=== PATIENT | female | born 1950 ===

== ENCOUNTER 2017-01-13 05:41 | Inpatient (IN) | payer OTHER ==
[2017-01-13] MEDS ORDERED: LIDOCAINE 1% 2 ML INJ ONE (06:10)
[2017-01-13] MEDS ORDERED: BUPIVACAINE/EPI 0.25% 30 ML SDV ONE (06:46)
[2017-01-13] MEDS ORDERED: SKIN ADHESIVE (DERMABOND) 1 EACH TP ONE (06:46)
[2017-01-13] MEDS ORDERED: THROMBIN (RECOMBINANT) 20,000 UNIT VIAL TP ONE (06:46)
[2017-01-13] MEDS ORDERED: BACITRACIN 50,000 UNITS/10 ML SYR IRR ONE (06:47)
[2017-01-13] MEDS ORDERED: LIDOCAINE 1% 5 ML SDV ID PRN (06:50)
[2017-01-13] MEDS ORDERED: LR 1,000 ML IV ONE (06:50)
[2017-01-13] MEDS ORDERED: morphINE PF 5 MG/10 ML INJ IT ONE (07:00)
[2017-01-13] MEDS ORDERED: DEXAMETHASONE 4 MG/ML VIAL ONE ×2 (07:13)
[2017-01-13] MEDS ORDERED: MIDAZOLAM 2 MG/2 ML VIAL ONE (07:14)
[2017-01-13] MEDS ORDERED: LIDOCAINE 2% 100 MG/5 ML SYR ONE (07:14)
[2017-01-13] MEDS ORDERED: ONDANSETRON 4 MG/2 ML VIAL ONE (07:14)
[2017-01-13] MEDS ORDERED: PROPOFOL/EMULSION 500 MG/50 ML BOTTLE IV ONE ×2 (07:15→10:00)
[2017-01-13] MEDS ORDERED: REMIFENTANIL HCL 1 MG VIAL ONE ×2 (07:15→10:00)
[2017-01-13] MEDS ORDERED: LIDOCAINE HCL 160 MG/4 ML LTA KIT TP ONE (07:17)
[2017-01-13] MEDS ORDERED: ceFAZolin 2 GM/DEXTROSE 100 ML IV ONE (07:30)
[2017-01-13] MEDS ORDERED: PHENYLEPHRINE HCL 100 MCG/ML SYR ONE ×2 (07:31→09:14)
[2017-01-13] MEDS ORDERED: CITRATE DEXTROSE SOLN 500 ML BAG ONE ×2 (07:49→14:02)
[2017-01-13] MEDS ORDERED: PHENYLEPHRINE 10 MG/ML SDV ONE (09:24)
[2017-01-13] MEDS ORDERED: ADDERALL 10 MG TAB PO PRN (11:12)
[2017-01-13] MEDS ORDERED: BUPIVICAINE IT SCH (11:15)
[2017-01-13] MEDS ORDERED: ONDANSETRON 4 MG/2 ML VIAL IVP PRN (11:15)
[2017-01-13] MEDS ORDERED: HYDROMORPHONE IT SCH (11:15)
[2017-01-13] MEDS ORDERED: MAGNESIUM HYDROXIDE 30 ML UDCUP PO PRN (11:15)
[2017-01-13] MEDS ORDERED: LACTULOSE 20 GM/30 ML UDCUP PO PRN (11:15)
[2017-01-13] MEDS ORDERED: BISACODYL 10 MG SUPP PR PRN (11:15)
[2017-01-13] MEDS ORDERED: PROPOFOL 200 MG/20 ML VIAL ONE (13:21)
[2017-01-13] MEDS ORDERED: morphINE *ANESTHESIA ONLY* 10 MG/ML VIAL ONE (13:25)
[2017-01-13] MEDS ORDERED: morphINE PF 5 MG/10 ML INJ ONE (14:21)
--- NOTE | 2017-01-13 15:43 | POSTOPPROG ---
Post Op Note Date of Operation: 01/14/17 Surgeon: Maria Antonia Delaney Designer/Writer: SANDRA Delaney Anesthesia: GET(General Endotracheal) Pre-op Diagnosis: scoliosis, chronic pain, post laminectomy syndrome Post-op Diagnosis: scoliosis, chronic pain, post laminectomy syndrome Indication: scoliosis, chronic pain, post laminectomy syndrome Procedure: see below Inf/Abcess present in the surg proc area at time of surgery?: No EBL: 1000cc Drains: Johnny NORMAN Addendum - Addendum .: A/P 66y/o female s/p exploration and revision of prior hardware with removal of S1 screws, T9-L5 PSF, T12/L1 TLIF/laminectomy, T9/10 laminectomy for spinal cord stimulator placement, revision of intrathecal pain pump catheter S: back pain O: NAD A&Ox3 MAEx4 5/5 and equal in BUE and BLE Plan: Optimize pain management, to ICU on precedex Post op xrays pending Jovany brace ordered, need to have prior to getting up and OOB JPx1 PT/OT DVT prophx: TEDs, SCDs, Lovenox okay POD2 Please notify NS with any change in neuro/motor exam
[2017-01-13] MEDS: NS W/ 20 KCl/L 1,000 ML IV SCH (17:32)
[2017-01-13 18:34] LABS: HEMATOCRIT 33.3 % (38.0-47.0); HEMOGLOBIN 11.4 g/dL (12.6-16.3)
[2017-01-13] MEDS: CEVIMELINE HCL 30 MG PO SCH (20:31)
[2017-01-13] MEDS: FAMOTIDINE 20 MG/NACL 50 ML IV SCH (20:33)
[2017-01-13] MEDS: HYDROmorphONE/DILAUDID 1 MG/ML SYR IVP PRN ×2 (20:33→23:29)
[2017-01-13] MEDS ORDERED: NON-FORMULARY NEW DRUG (Valacyclovir Hcl [Valtrex] 1,000 MG) PO SCH ×2 (21:00)
[2017-01-13] MEDS ORDERED: NON-FORMULARY NEW DRUG (Gabapentin [Neurontin] 1,200 MG) PO SCH (21:00)
[2017-01-13] MEDS: valACYclovir 500 MG TAB PO SCH (21:17)
[2017-01-13] MEDS: SENNOSIDES/DOCUSATE SODIUM TAB PO SCH (21:19)
[2017-01-13] MEDS: BACLOFEN 20 MG TAB PO SCH (21:19)
[2017-01-13] MEDS: busPIRone 15 MG TAB PO SCH (21:20)
[2017-01-13] MEDS: GABAPENTIN 400 MG CAP PO SCH (21:20)
[2017-01-13] MEDS: HYDROmorphONE/DILAUDID 4 MG TAB PO PRN (21:56)
[2017-01-13] MEDS: DIAZEPAM 5 MG TAB PO PRN (23:29)
[2017-01-14] MEDS: DEXMEDETOMIDINE HCL 400 MCG in NS 100 ML IV SCH ×3 (00:52→21:52)
[2017-01-14 05:17] LABS: HEMATOCRIT 26.5 % (38.0-47.0); HEMOGLOBIN 8.8 g/dL (12.6-16.3)
[2017-01-14] MEDS: HYDROmorphONE/DILAUDID 1 MG/ML SYR IVP PRN ×8 (05:24→22:23)
[2017-01-14] MEDS: HYDROmorphONE/DILAUDID 4 MG TAB PO PRN ×2 (06:31→11:36)
[2017-01-14] MEDS: DIAZEPAM 10 MG/2 ML SYR IVP PRN ×2 (07:40→09:00)
--- NOTE | 2017-01-14 08:59 | NEUSURGPN ---
Assessment/Plan: A/P 66y/o female s/p exploration and revision of prior hardware with removal of S1 screws, T9-L5 PSF, T12/L1 TLIF/laminectomy, T9/10 laminectomy for spinal cord stimulator placement, revision of intrathecal pain pump catheter POD1 Plan: Optimize pain management, to ICU on precedex Post op xrays pending [place] brace ordered, need to have prior to getting up and OOB Continue JPx1 PT/OT Follow H:H will recheck this afternoon DVT prophx: TEDs, SCDs, Lovenox okay POD2 Please notify NS with any change in neuro/motor exam Seen with Dr. Castro this am Subjective: low back pain, denies any new leg pain Objective: O: NAD A&Ox3 MAEx4 03/04 and equal in BUE and BLE except right EHL/DF /5 Catheter Insertion Date: 01/13/17 - Physician Patient Seen by Dr.: Castro Neurosurgery Physical Exam - Vitals, I&O, Labs I and O 01/13/17 01/14/17 01/15/17 05:59 05:59 05:59 Intake Total 5500 Output Total 4640 Balance 860 Weight 85 kg Intake: Oral (ml) 800 IV Intake (ml) 3700 Autologous Blood (ml) 1000 Output: Urine (ml) 2230 Catheter 2230 Estimated Blood Loss (ml) 2000 Wound Drainage (ml) 410 #1 Right Posterior Back 410 Johnny Hoff Vital Signs Temp Pulse Resp BP Pulse Ox 37 C 84 19 90/50 L 99 01/13/17 19:00 01/14/17 06:00 01/14/17 06:00 01/14/17 06:00 01/14/17 06:00 Laboratory Results 01/14/17 04:55 ICD10 Worksheet Patient Problems: Problems Problem Status Onset Spinal stenosis Acute - ICD10 Problem Qualifiers (1) Spinal stenosis Qualifiers: Spinal region: S
[2017-01-14] MEDS: BACLOFEN 20 MG TAB PO SCH ×2 (09:00→21:37)
[2017-01-14] MEDS: PANTOPRAZOLE SODIUM 40 MG TAB PO SCH (09:00)
[2017-01-14] MEDS ORDERED: LANSOPRAZOLE SUSP 3 MG/ML UDSYR (Peds) PO SCH (09:00)
[2017-01-14] MEDS ORDERED: NON-FORMULARY NEW DRUG (Gabapentin [Neurontin] 600 MG) PO SCH (09:00)
[2017-01-14] MEDS: VENLAFAXINE XR 75 MG CAP PO SCH (09:01)
[2017-01-14] MEDS: SENNOSIDES/DOCUSATE SODIUM TAB PO SCH ×2 (09:01→21:38)
[2017-01-14] MEDS: FAMOTIDINE 20 MG/NACL 50 ML IV SCH (09:01)
[2017-01-14] MEDS: GABAPENTIN 300 MG CAP PO SCH (09:01)
[2017-01-14] MEDS: MULTIVITAMINS 1 EACH TAB PO SCH (09:01)
[2017-01-14] MEDS: busPIRone 15 MG TAB PO SCH ×2 (09:01→21:38)
--- NOTE | 2017-01-14 09:11 | GOP ---
[f rep st] OPERATIVE REPORT DATE OF OPERATION: 01/13/2017 SURGEON: Adonis Castro MD LEAD MILITARY ANALYST: YOMI Campos ANESTHESIA: General. PREOPERATIVE DIAGNOSIS: 1. Adjacent level breakdown with scoliosis. 2. History of prior lumbar fusion, L2 to S1. 3. Intractable back pain. 4. Chronic pain syndrome. 5. Postlaminectomy syndrome. 6. History of prior spinal cord stimulator placement with subsequent removal. 7. History of intrathecal pump placement. POSTOPERATIVE DIAGNOSIS: 1. Adjacent level breakdown with scoliosis. 2. History of prior lumbar fusion, L2 to S1. 3. Intractable back pain. 4. Chronic pain syndrome. 5. Postlaminectomy syndrome. 6. History of prior spinal cord stimulator placement with subsequent removal. 7. History of intrathecal pump placement. PROCEDURE PERFORMED: 1. Posterior arthrodesis with approach to T9, T10, T11, T12, L1, L2, L3, L4, L5 , and S1. 2. Exploration and subsequent removal of prior lumbar hardware L2 through S1. 3. Placement of new bilateral pedicle screws into the bilateral T9, T10, T11, T12, L1, L2, L3, L4, L5 levels from the Medtronic Solera system. 4. Decompressive laminectomy, T12-L1, with left-sided T12-L1 partial corpectomy and interbody fusion using a 7 x 23 mm Titanium PEEK elevated cage with morselized autograft and allograft. Right sided pars resection. 5. Posterolateral fusion bilateral between T9 and L2 with morselized autograft and allograft. 6. Laminectomy T9 through T11 with placement of paddle electrode from the Medtronic spinal cord stimulator system with left-sided subcutaneous tissue implantable pulse generator and intraoperative interrogation. 7. Revision of intrathecal catheter with laminectomy for the implanted pain pump. 8. Use of intraoperative fluoroscopy, less than 1 hour physician time. 9. Use of neuromonitoring. 10. Use of the operating microscope. 11. Use of intraoperative 3D Stealth navigation. 12. Quad clayton placement across the T11-T12 through L2-L3 levels bilaterally. 13. Crosslink placement between T10 and T11 and L3-L4. 14. Correction of scoliosis. FINDINGS: per imaging SPECIMENS: None. ESTIMATED BLOOD LOSS: 1 L with 750 replaced via Cell Saver. INDICATIONS: The patient is a 66-year-old, who has undergone multiple spinal surgeries including a prior spinal cord stimulator placement and recently a pain pump placement. She had progressive back pain and evidence of severe scoliosis to the left with adjacent level breakdown most notably at the T12 through L2 levels. After failing nonoperative interventions and after discussion of risks, benefits, and treatment alternatives, we decided to proceed forth with surgery as described above. DESCRIPTION OF PROCEDURE: Patient brought to the operative theater, and underwent general endotracheal anesthesia without complications. She had Venodynes, JEWELL hose, and a Bauer catheter placed. Appropriate lines were placed per Anesthesia. She was then flipped prone onto the Johnny table. All bony processes inspected and padded. The thoracolumbar areas were then prepped and draped in usual sterile surgical fashion. A time-out was completed per protocol. The patient received antibiotics within 1 hour of incision. The patient's prior midline thoracolumbar incision was identified, prepped and draped in usual sterile surgical fashion. The incision was infiltrated with Marcaine with epinephrine. The incision was taken down with the scalpel blade. Then using the PlasmaBlade, the incision was taken down the midline through previous scar tissue. We immediately encountered the catheter from the pain pump on the left side, which we identified and skeletonized very carefully. There was evidence of injury to the catheter from a stay suture that was placed and we therefore elected to revise this catheter. The catheter was cut and the disrupted portion removed. We then used the repair system and reaffixed the 2 [place] edges of the catheter system. We then continued with our dissection through the subcutaneous tissues and exposed the prior hardware at the bilaterally at L2, L3, L4, L5 and S1 levels from the Exie Tiffanie system. We continued with the exposure superiorly to the T9, T10, T11, T12, and L1 levels and a subperiosteal dissection carried out to the lateral aspects of the transverse processes. Deep retractors were placed to maintain our exposure. We then explored the prior lumbar fusion which appeared to be solidly fused. We sequentially removed the cap screws and rods bilaterally between L2 and S1. We then removed the bilateral pedicle screws from L2 through S1 and passed them off the field. These pedicle screws were replaced on the left-sided L4 and L5 with a 9.5 mm screw and on the right at L4 , and a 7.5 mm screw on the right at L5. I opted to leave out the S1 bilateral screws. We then attached the 3D navigation clamp to the spinous process of L1 and completed a 3D navigation spine. Using 3D navigation we placed the engine pilot holes for the bilateral pedicle screws into the T9, T10, T11, T12, and L1. All holes were manually palpated with no evidence of any cortical breaches. We then placed 5.5 mm screws into the left T9, bilateral T10, bilateral T11, and bilateral T12 pedicles. We placed a 5.0 mm screw into the right side at T9 and bilaterally at L1. Another 3D navigation spine demonstrated good placement of the hardware. At this point, we completed a decompressive laminectomy at T12-L1 with bilateral mesial facetectomies. We resected the pars on the right side and left side at T12-L1 to help with scoliosis correction. We then distracted the left side of T12-L1 and completed a left-sided T12-L1 diskectomy and partial corpectomy. We measured interbody space and placed a 7 x 23 mm titanium PEEK cage with morselized autograft and allograft into the left side of the T12-L1 interspace. We packed additional morcellized autograft into the disk space interbody fusion. We also resected the pars on the contralateral side to help with the scoliosis correction. At this point, we moved up to the T10-T11 space and completed a small hemilaminotomy. The patient had a prior spinal cord stimulator, and we were not able to dissect into the epidural space secondary to scar tissue. We therefore had to continue with a partial inferior T9 and full T10-T11 laminectomy. At this point, we placed a Medtronic spinal cord stimulator paddle lead over the exposed dura and scar tissue and tacked it down on the T9 through T11 levels using small plating systems and stay sutures. The wires were then tunneled out to the left side in the subcutaneous tissues and a pocket made over left buttock next to her prior pocket. The implantable pulse generator was then placed into the pocket and scured to the wires on the left side and the impedance verified with the stimulator system. AP and lateral x- rays demonstrated good placement of all the hardware, including the stimulator leads. At this point, we irrigated the wound copiously with bacitracin irrigation. We decorticated the bone bilaterally between T9 and L2. We placed 2 rods into the heads of the screws between T9 and L5 and de-rotated the patient to her right side to correct some of her left-sided scoliosis. The rods were then placed in the heads of the screws and tightened down with cap screws, which were tightened per the tours hostess's setting. We placed 2 crosslinks as well as a Quad Clayton system across the T11-T12 and L2-L3 levels bilaterally. We placed morselized autograft and allograft bilaterally between T9 and L2 for the posterolateral fusion. A drain was left in the subfascial space and the wound then closed in multiple layers using Vicryl sutures for the deep layers, and a running nylon stitch for the skin. The patient's wounds were dressed sterilely. She was flipped supine onto the transfer cart. She was awakened, extubated, and taken to the recovery room in stable condition. There were no complications and no noted changes on neuromonitoring throughout the procedure. Please note, this surgery is greater than 80% more challenging than the average surgery secondary to the patient's prior pain pump catheter which was in the location of the laminectomy and corpectomy site as well as the prior scar tissue from her paddle lead placement from the spinal cord stimulator as well as all of her scar tissue and body habitus. COMPLICATIONS: None. /[id number]/MODL MTDD
[2017-01-14 09:23] LABS: INR 1.23 (0.83-1.16); PROTIME(PATIENT) 15.5 SEC (12.0-15.0)
[2017-01-14] MEDS: CEVIMELINE HCL 30 MG PO SCH ×2 (11:06→22:23)
[2017-01-14] MEDS: Mirabegron [Myrbetriq] 50 MG) PO SCH (11:06)
--- NOTE | 2017-01-14 12:37 | GCON ---
[f rep st] CONSULTATION AUTOMATION AND CONTROLS INSTRUCTOR CONSULTATION. REASON FOR ADMISSION: Chronic back pain, extensive spinal surgery, sleep apnea. HISTORY OF PRESENT ILLNESS: The patient is a pleasant 66-year-old white female with a past medical history including central sleep apnea, generalized anxiety disorder, and adhesive arachnoiditis. Tarun olivera is examined postoperatively after receiving exploration and revision of prior hardware with remova l of S1 screws. She underwent a T9 through L5 PSF T12 through L1 TLIF, and laminectomy, T9-T10 lami nectomy, for spinal cord stimulator placement and revision of intrathecal pain pump. The patient is experiencing a significant amount of pain and is moaning. She is unable to provide any history. S he is on Precedex. All history is gleaned from the medical record. She is somewhat hypotensive at this time. PAST MEDICAL HISTORY: Again, significant for central sleep apnea, adhesive arachnoiditis, and anxie ty disorder. ALLERGIES: Acetazolamide, chlorhexidine, and iodine. SOCIAL HISTORY: Previous smoker. None recently. No significant alcohol use. PAST SURGICAL HISTORY: She has had spinal fusion, arthrodesis, cataract surgery, tonsillectomy. PHYSICAL EXAMINATION: VITAL SIGNS: Blood pressure is 89/62, pulse 93, respiration 19, temperature 37.7, oxygen saturation 100% on 3 L. GENERAL: She is a mildly overweight, 66-year-old white female who is in moderate pain. HEENT: Eyes are NICOLE, EOMI. Throat shows no erythema or tonsillar hype rtrophy. NECK: Supple. No cervical adenopathy. HEART: Regular rate and rhythm with a 2/6 systol ic murmur at the left sternal border without radiation. She is mildly tachycardiac. LUNGS: Dimini shed breath sounds, but no wheeze. ABDOMEN: Soft, nontender. Bowel sounds are present. EXTREMITI ES: No clubbing, cyanosis, or edema. LABORATORIES: Hemoglobin is 8.8, hematocrit 26. INR is 1.23. IMPRESSION: 1. Chronic back pain. 2. Status post removal of hardware, posterior spinal fusion, transforaminal lumbar interbody fusion , and laminectomy, with a spinal cord stimulator placement. 3. Hypotension, etiology which is unclear. Unclear whether this is hypovolemic. 4. History of central sleep apnea. 5. Generalized anxiety disorder. RECOMMENDATION: 1. Agree with checking H and H. 2. IV fluids. 3. Aggressive pain control. 4. DVT and PE prophylaxis. 5. Stress ulcer prophylaxis. 6. We will check labs. 7. PT and OT soon. Thank you very much. /[id number]/MODL
[2017-01-14 12:40] LABS: HEMATOCRIT 25.9 % (38.0-47.0); HEMOGLOBIN 8.4 g/dL (12.6-16.3)
[2017-01-14 13:59] LABS: ANION GAP 3 mEq/L (8-16); CALCIUM 7.1 mg/dL (8.5-10.4); CARBON DIOXIDE 24 mEq/l (22-31); CHLORIDE 115 mEq/L (97-110); CREATININE 0.6 mg/dL (0.6-1.0); GLOMERULAR FILTRATION RATE > 60; GLUCOSE 95 mg/dL (70-100); SODIUM 142 mEq/L (134-144)
[2017-01-14] MEDS: morphINE SR 15 MG TAB PO SCH (17:25)
[2017-01-14] MEDS: METHOCARBAMOL 750 MG TAB PO PRN (21:38)
[2017-01-14] MEDS: FAMOTIDINE 20 MG TAB PO SCH (21:38)
[2017-01-14] MEDS: GABAPENTIN 400 MG CAP PO SCH (21:39)
[2017-01-14] MEDS: valACYclovir 500 MG TAB PO SCH (21:40)
[2017-01-14] MEDS: NS W/ 20 KCl/L 1,000 ML IV SCH (22:24)
[2017-01-15] MEDS: morphINE SR 15 MG TAB PO SCH ×4 (01:54→20:20)
[2017-01-15] MEDS: METHOCARBAMOL 750 MG TAB PO PRN ×4 (02:30→21:50)
[2017-01-15] MEDS: HYDROmorphONE/DILAUDID 1 MG/ML SYR IVP PRN ×3 (05:38→16:20)
[2017-01-15] MEDS: HYDROmorphONE/DILAUDID 4 MG TAB PO PRN ×4 (05:57→21:50)
[2017-01-15] MEDS: BACLOFEN 20 MG TAB PO SCH ×2 (08:00→20:18)
[2017-01-15] MEDS: ENOXAPARIN 40 MG/0.4 ML SYR SC SCH (09:14)
--- NOTE | 2017-01-15 10:09 | NEUSURGPN ---
Date of Surgery: 01/13/17 Post Op Day: 2 Assessment/Plan: Assessment/Plan: A/P 66y/o female s/p exploration and revision of prior hardware with removal of S1 screws, T9-L5 PSF, T12/L1 TLIF/laminectomy, T9/10 laminectomy for spinal cord stimulator placement, revision of intrathecal pain pump catheter POD1 Plan: Optimize pain management, to ICU on precedex Post op xrays pending Jovany brace ordered, need to have prior to getting up and OOB Continue JPx1 PT/OT H&H stable. DVT prophx: TEDs, SCDs, Lovenox okay POD2 Please notify NS with any change in neuro/motor exam d/w Dr. Castro Subjective: Pt doing well, but did have episode of nausea while in the room. Family members at bedside. Objective: O: NAD A&Ox3 EOMI, PEARLA, no facial droop MAEx4 5/5 and equal in BUE and BLE except right EHL/DF 4/5 +LT Urinary Catheter in Place: Yes Urinary Catheter Indication: Surgical Requirement Catheter Insertion Date: 01/13/17 - Physician Discussed Patient with : Gloria Neurosurgery Physical Exam - Vitals, I&O, Labs I and O 01/14/17 01/15/17 01/16/17 05:59 05:59 05:59 Intake Total 5500 4819.6 Output Total 4640 1520 Balance 860 3299.6 Weight 85 kg Intake: Oral (ml) 800 500 IV Intake (ml) 3700 1575 IV Infused (ml) 2744.6 Dexmedetomidine HCl 400 219.6 mcg In Ns 100 ml @ Titrate IV CONT MIRNA Rx#: [id number] NS W/ 20 KCl/L 1,000 ml @ 2525 75 mls/hr IV CONT MIRNA Rx #:[id number] Autologous Blood (ml) 1000 Output: Urine (ml) 2230 1100 Catheter 2230 1100 Estimated Blood Loss (ml) 2000 Wound Drainage (ml) 410 420 #1 Right Posterior Back 410 420 Johnny Hoff Vital Signs Temp Pulse Resp BP Pulse Ox 37.0 C 101 H 22 H 110/65 97 01/15/17 08:00 01/15/17 08:00 01/15/17 08:00 01/15/17 08:00 01/15/17 08:00 Laboratory Results 01/14/17 12:20 01/14/17 13:30 ICD10 Worksheet Patient Problems: Problems Problem Status Onset Spinal stenosis Acute
--- NOTE | 2017-01-15 10:58 | PDINTPN ---
Neuropsychiatric Aide Progress Note Assessment/Plan: Assessment/Plan: * S/P extensive back surgery * Central sleep apnea * Anxiety * Pain-well controlled * PT/OT * Dispo- to floor today Subjective: Up in chair. Comfortable. Pain okay Objective: Vital Signs Temp Pulse Resp BP Pulse Ox 37.0 C 110 H 21 H 131/65 H 99 01/15/17 08:00 01/15/17 10:00 01/15/17 10:00 01/15/17 10:00 01/15/17 10:00 Laboratory Results 01/14/17 12:20 01/14/17 13:30 01/14/17 01/15/17 01/16/17 05:59 05:59 05:59 Intake Total 5500 4819.6 Output Total 4640 1520 Balance 860 3299.6 PT 15.5 SEC (12.0-15.0) H 01/14/17 08:30 INR 1.23 (0.83-1.16) H 01/14/17 08:30 Physical Exam - Physical Exam General Appearance: WD/WN, alert, mild distress EENT: PERRL/EOMI, normal ENT inspection Neck: non-tender, full range of motion, supple, normal inspection Respiratory: chest non-tender, lungs clear, normal breath sounds Cardiac/Chest: normal peripheral pulses, regular rate, rhythm Peripheral Pulses: 2+: carotid (R), carotid (L), femoral (R), femoral (L), dorsalis-pedis (R), dorsalis-pedis (L) Abdomen: normal bowel sounds, non-tender, soft Pelvic Exam: deferred Rectal: deferred Skin: normal color, warm/dry ICD10 Worksheet Patient Problems: Problems Problem Status Onset Spinal stenosis Acute
[2017-01-15] MEDS: GABAPENTIN 300 MG CAP PO SCH (11:24)
[2017-01-15] MEDS: SENNOSIDES/DOCUSATE SODIUM TAB PO SCH ×2 (11:24→20:21)
[2017-01-15] MEDS: busPIRone 15 MG TAB PO SCH ×2 (11:25→20:18)
[2017-01-15] MEDS: Mirabegron [Myrbetriq] 50 MG) PO SCH (12:22)
[2017-01-15] MEDS: MULTIVITAMINS 1 EACH TAB PO SCH (12:22)
[2017-01-15] MEDS: VENLAFAXINE XR 75 MG CAP PO SCH (12:22)
[2017-01-15] MEDS: FAMOTIDINE 20 MG TAB PO SCH ×2 (12:22→20:19)
[2017-01-15] MEDS: CEVIMELINE HCL 30 MG PO SCH ×2 (12:23→20:45)
[2017-01-15] MEDS: PANTOPRAZOLE SODIUM 40 MG TAB PO SCH (15:38)
[2017-01-15] MEDS: ONDANSETRON DISINTEGRATING 4 MG TAB PO PRN (17:36)
[2017-01-15] MEDS: valACYclovir 500 MG TAB PO SCH (20:17)
[2017-01-15] MEDS: GABAPENTIN 400 MG CAP PO SCH (20:17)
[2017-01-15] MEDS: DIAZEPAM 5 MG TAB PO PRN (20:18)
[2017-01-16] MEDS: HYDROmorphONE/DILAUDID 1 MG/ML SYR IVP PRN ×3 (01:09→10:45)
[2017-01-16] MEDS: HYDROmorphONE/DILAUDID 4 MG TAB PO PRN ×5 (02:28→23:08)
[2017-01-16] MEDS: METHOCARBAMOL 750 MG TAB PO PRN ×2 (02:28→20:25)
[2017-01-16] MEDS: morphINE SR 15 MG TAB PO SCH ×4 (04:48→23:08)
[2017-01-16] MEDS: FAMOTIDINE 20 MG TAB PO SCH ×2 (08:30→20:26)
[2017-01-16] MEDS: SENNOSIDES/DOCUSATE SODIUM TAB PO SCH ×2 (08:30→20:27)
[2017-01-16] MEDS: VENLAFAXINE XR 75 MG CAP PO SCH (08:30)
[2017-01-16] MEDS: GABAPENTIN 300 MG CAP PO SCH (08:31)
[2017-01-16] MEDS: MULTIVITAMINS 1 EACH TAB PO SCH (08:31)
[2017-01-16] MEDS: BACLOFEN 20 MG TAB PO SCH ×2 (08:32→20:25)
[2017-01-16] MEDS: busPIRone 15 MG TAB PO SCH ×2 (08:32→20:26)
[2017-01-16] MEDS: ENOXAPARIN 40 MG/0.4 ML SYR SC SCH (08:33)
[2017-01-16] MEDS: CEVIMELINE HCL 30 MG PO SCH ×2 (08:37→20:28)
[2017-01-16] MEDS: Mirabegron [Myrbetriq] 50 MG) PO SCH (08:38)
--- NOTE | 2017-01-16 09:51 | NEUSURGPN ---
Date of Surgery: 01/13/17 Post Op Day: 3 Assessment/Plan: Assessment/Plan: A/P 66y/o female s/p exploration and revision of prior hardware with removal of S1 screws, T9-L5 PSF, T12/L1 TLIF/laminectomy, T9/10 laminectomy for spinal cord stimulator placement, revision of intrathecal pain pump catheter POD3 Plan: Optimize pain management, to ICU on precedex Post op xrays pending Jovany brace when upright and OOB JPx1, likely pull today PT/OT H&H stable. DVT prophx: TEDs, SCDs, Lovenox okay POD2 Please notify NS with any change in neuro/motor exam d/w Dr. Castro Subjective: doing well, in chair, family at bedside, having some shooting pains from her groin down her medial legs. Objective: A&Ox3, a little sedated today vss, nad EOMI, PEARLA, no facial droop MAEx4 BLE appear to have some generalized weakness, Left DF, HF, KF reduced strength, possibly a little effort dependent d/t sedation +LT Catheter Insertion Date: 01/13/17 - Physician Discussed Patient with : Gloria Neurosurgery Physical Exam - Vitals, I&O, Labs I and O 01/15/17 01/16/17 01/17/17 05:59 05:59 05:59 Intake Total 4819.6 1975 Output Total 1520 2135 Balance 3299.6 -160 Intake: Oral (ml) 500 1750 IV Intake (ml) 1575 IV Infused (ml) 2744.6 225 Dexmedetomidine HCl 400 219.6 mcg In Ns 100 ml @ Titrate IV CONT MIRNA Rx#: [id number] NS W/ 20 KCl/L 1,000 ml @ 2525 225 75 mls/hr IV CONT MIRNA Rx #:[id number] Output: Urine (ml) 1100 1900 Catheter 1100 1300 Toilet 600 Wound Drainage (ml) 420 235 #1 Right Posterior Back 420 235 Johnny Hoff Other: Number of Voids Bedside Commode 1 Toilet 3 Vital Signs Temp Pulse Resp BP Pulse Ox 36.9 C 95 18 150/74 H 88 L 01/16/17 07:30 01/16/17 07:30 01/16/17 07:30 01/16/17 07:30 01/16/17 07:30 Laboratory Results 01/14/17 12:20 01/14/17 13:30 ICD10 Worksheet Patient Problems: Problems Problem Status Onset Spinal stenosis Acute
[2017-01-16] MEDS: GABAPENTIN 400 MG CAP PO SCH (20:25)
[2017-01-16] MEDS: valACYclovir 500 MG TAB PO SCH (20:26)
[2017-01-16] MEDS: DIAZEPAM 5 MG TAB PO PRN (23:09)
[2017-01-17] MEDS: METHOCARBAMOL 750 MG TAB PO PRN ×2 (02:53→21:52)
[2017-01-17] MEDS: HYDROmorphONE/DILAUDID 4 MG TAB PO PRN ×5 (02:53→21:52)
[2017-01-17] MEDS: POLYETHYLENE GLYCOL 3350 17 GM PKT PO PRN (05:35)
[2017-01-17] MEDS: morphINE SR 15 MG TAB PO SCH ×3 (05:35→21:53)
[2017-01-17] MEDS: DIAZEPAM 5 MG TAB PO PRN (05:35)
[2017-01-17] MEDS: BACLOFEN 20 MG TAB PO SCH ×2 (08:04→20:24)
[2017-01-17] MEDS: GABAPENTIN 300 MG CAP PO SCH (08:04)
[2017-01-17] MEDS: ENOXAPARIN 40 MG/0.4 ML SYR SC SCH (08:04)
[2017-01-17] MEDS: VENLAFAXINE XR 75 MG CAP PO SCH (08:06)
[2017-01-17] MEDS: FAMOTIDINE 20 MG TAB PO SCH ×2 (08:06→20:26)
[2017-01-17] MEDS: SENNOSIDES/DOCUSATE SODIUM TAB PO SCH ×2 (08:06→20:26)
[2017-01-17] MEDS: busPIRone 15 MG TAB PO SCH ×2 (08:07→20:26)
[2017-01-17] MEDS: MULTIVITAMINS 1 EACH TAB PO SCH (08:07)
--- NOTE | 2017-01-17 09:32 | NEUSURGPN ---
Assessment/Plan: A/P 66y/o female s/p exploration and revision of prior hardware with removal of S1 screws, T9-L5 PSF, T12/L1 TLIF/laminectomy, T9/10 laminectomy for spinal cord stimulator placement, revision of intrathecal pain pump catheter POD4 Plan: Optimize pain management, will increase MsContin and gabapentin Jovany brace when OOB D/c AGGIE drain PT/OT DVT prophx: TEDs, SCDs, Lovenox Please notify NS with any change in neuro/motor exam Dispo planning for the next 1-[address] Castro this am Subjective: low back pain and right gluteal pain Objective: NAD A&Ox3 MAEx4 5/d and equal in BUE and BLE left EHL/DF 5-/5. Incision c/d/i Catheter Insertion Date: 01/13/17 - Physician Patient Seen by : Gloria Neurosurgery Physical Exam - Vitals, I&O, Labs I and O 01/16/17 01/17/17 01/18/17 05:59 05:59 05:59 Intake Total 1974 1349 Output Total 5 1985 680 Balance -160 -635 -680 Intake: Oral (ml) 1750 1350 IV Infused (ml) 225 NS W/ 20 KCl/L 1,000 ml @ 225 75 mls/hr IV CONT MIRNA Rx #:[id number] Output: Urine (ml) 1900 1900 650 Bedside Commode 500 Catheter 1300 Toilet 600 1400 650 Wound Drainage (ml) 235 85 30 #1 Right Posterior Back 235 85 30 Johnny Hoff Other: Number of Voids Bedside Commode 1 Toilet 3 1 Vital Signs Temp Pulse Resp BP Pulse Ox 37.1 C 101 H 16 123/74 H 95 01/17/17 07:25 01/17/17 07:25 01/17/17 07:25 01/17/17 07:25 01/17/17 07:25 Laboratory Results 01/14/17 12:20 01/14/17 13:30 ICD10 Worksheet Patient Problems: Problems Problem Status Onset Spinal stenosis Acute - ICD10 Problem Qualifiers (1) Spinal stenosis Qualifiers: Spinal region: S
[2017-01-17] MEDS: CEVIMELINE HCL 30 MG PO SCH ×2 (09:35→20:26)
[2017-01-17] MEDS: Mirabegron [Myrbetriq] 50 MG) PO SCH (09:35)
[2017-01-17] MEDS: GABAPENTIN 400 MG CAP PO SCH (20:24)
[2017-01-17] MEDS: valACYclovir 500 MG TAB PO SCH (20:26)
[2017-01-18] MEDS: ACETAMINOPHEN 325 MG TAB PO PRN (02:08)
[2017-01-18] MEDS: HYDROmorphONE/DILAUDID 4 MG TAB PO PRN ×6 (02:08→23:55)
[2017-01-18] MEDS: DIAZEPAM 5 MG TAB PO PRN ×3 (02:08→21:16)
[2017-01-18] MEDS: morphINE SR 15 MG TAB PO SCH ×3 (05:33→21:16)
[2017-01-18] MEDS: METHOCARBAMOL 750 MG TAB PO PRN ×4 (05:33→23:55)
--- NOTE | 2017-01-18 07:42 | NEUSURGPN ---
Assessment/Plan: A/P 66y/o female s/p exploration and revision of prior hardware with removal of S1 screws, T9-L5 PSF, T12/L1 TLIF/laminectomy, T9/10 laminectomy for spinal cord stimulator placement, revision of intrathecal pain pump catheter POD5 Plan: Optimize pain management, increased MsContin and gabapentin yesterday [place] brace when OOB D/c AGGIE drain PT/OT DVT prophx: TEDs, SCDs, Lovenox Please notify NS with any change in neuro/motor exam Dispo planning for the next 1-2 days to rehab D/w Dr Castro Please call NS with any issues Subjective: Pt resting in bed, c/o right sided hip and SI joint area pain Objective: AAOx3 NAD VSS MAEx4 Incision cdi +LT AGGIE in place Urinary Catheter in Place: No Catheter Insertion Date: 01/13/17 - Physician Discussed Patient with : Gloria Neurosurgery Physical Exam - Vitals, I&O, Labs I and O 01/17/17 01/18/17 01/19/17 05:59 05:59 05:59 Intake Total 1350 850 Output Total 1985 2930 Balance -635 -2080 Intake: Oral (ml) 1350 850 Output: Urine (ml) 1900 2850 Bedside Commode 500 400 Toilet 1400 2450 Wound Drainage (ml) 85 80 #1 Right Posterior Back 85 80 Johnny Hoff Other: Number of Voids Bedside Commode 1 1 Toilet 2 Number of Stools Bedside Commode 1 Toilet 1 Vital Signs Temp Pulse Resp BP Pulse Ox 36.9 C 97 16 137/80 H 93 01/18/17 07:27 01/18/17 07:27 01/18/17 07:27 01/18/17 07:27 01/18/17 07:27 Laboratory Results 01/14/17 12:20 01/14/17 13:30 ICD10 Worksheet Patient Problems: Problems Problem Status Onset Spinal stenosis Acute
[2017-01-18] MEDS: MULTIVITAMINS 1 EACH TAB PO SCH (08:01)
[2017-01-18] MEDS: VENLAFAXINE XR 75 MG CAP PO SCH (08:01)
[2017-01-18] MEDS: BACLOFEN 20 MG TAB PO SCH ×2 (08:01→19:59)
[2017-01-18] MEDS: SENNOSIDES/DOCUSATE SODIUM TAB PO SCH ×2 (08:01→19:58)
[2017-01-18] MEDS: busPIRone 15 MG TAB PO SCH ×2 (08:01→19:58)
[2017-01-18] MEDS: GABAPENTIN 300 MG CAP PO SCH (08:02)
[2017-01-18] MEDS: FAMOTIDINE 20 MG TAB PO SCH ×2 (08:02→19:58)
[2017-01-18] MEDS: ENOXAPARIN 40 MG/0.4 ML SYR SC SCH (08:03)
[2017-01-18] MEDS: CEVIMELINE HCL 30 MG PO SCH ×2 (08:07→19:59)
[2017-01-18] MEDS: Mirabegron [Myrbetriq] 50 MG) PO SCH (08:08)
[2017-01-18] MEDS: LIDOCAINE 5% 1 EA PATCH TD SCH (15:49)
[2017-01-18] MEDS: GABAPENTIN 400 MG CAP PO SCH (19:56)
[2017-01-18] MEDS: valACYclovir 500 MG TAB PO SCH (19:57)
[2017-01-18] MEDS: PATCH REMOVAL 1 EA PATCH TD SCH (21:00)
[2017-01-19] MEDS: HYDROmorphONE/DILAUDID 4 MG TAB PO PRN ×5 (04:50→23:04)
[2017-01-19] MEDS: DIAZEPAM 5 MG TAB PO PRN ×2 (04:50→20:06)
[2017-01-19] MEDS: morphINE SR 15 MG TAB PO SCH ×3 (05:53→22:41)
--- NOTE | 2017-01-19 07:54 | SOAPPROG ---
SOAP Progress Note Assessment/Plan: Assessment: 66 yo F POD #6 T9-L5 fusion Plan: neuro: stable pain management continues to be an issue, encouraged to walk as much as possible PT/OT scd/elizabeth/lovenox for DVT prophylaxis dc c4 planner looking at rehab options please call with neuro changes discussed with Dr Duenas 01/19/17 07:50 Subjective: continued back pain, some pain over SI joint and groin with standing. no weakness, no headaches. Objective: Vital Signs Temp Pulse Resp BP Pulse Ox 37.1 C 100 16 143/102 H 94 01/19/17 07:45 01/19/17 07:45 01/19/17 07:45 01/19/17 07:45 01/19/17 07:45 Laboratory Results 01/14/17 12:20 01/14/17 13:30 01/18/17 01/19/17 01/20/17 05:59 05:59 05:59 Intake Total 850 500 Output Total 2930 Balance -2080 500 PT 15.5 SEC (12.0-15.0) H 01/14/17 08:30 INR 1.23 (0.83-1.16) H 01/14/17 08:30 AAOX4, +FC PERRL, EOMI, no facial droop 5/5 + light touch C/D/I ICD10 Worksheet Patient Problems: Problems Problem Status Onset Spinal stenosis Acute
[2017-01-19] MEDS: LIDOCAINE 5% 1 EA PATCH TD SCH (08:04)
[2017-01-19] MEDS: ENOXAPARIN 40 MG/0.4 ML SYR SC SCH (08:05)
[2017-01-19] MEDS: MULTIVITAMINS 1 EACH TAB PO SCH (08:05)
[2017-01-19] MEDS: SENNOSIDES/DOCUSATE SODIUM TAB PO SCH (08:05)
[2017-01-19] MEDS: busPIRone 15 MG TAB PO SCH ×2 (08:05→22:41)
[2017-01-19] MEDS: VENLAFAXINE XR 75 MG CAP PO SCH (08:05)
[2017-01-19] MEDS: GABAPENTIN 300 MG CAP PO SCH (08:05)
[2017-01-19] MEDS: METHOCARBAMOL 750 MG TAB PO PRN ×2 (08:06→16:28)
[2017-01-19] MEDS: BACLOFEN 20 MG TAB PO SCH ×2 (08:06→22:40)
[2017-01-19] MEDS: FAMOTIDINE 20 MG TAB PO SCH ×2 (08:06→22:41)
[2017-01-19] MEDS: CEVIMELINE HCL 30 MG PO SCH ×2 (08:07→23:05)
[2017-01-19] MEDS: Mirabegron [Myrbetriq] 50 MG) PO SCH (08:07)
[2017-01-19] MEDS: POLYETHYLENE GLYCOL 3350 17 GM PKT PO PRN (08:19)
[2017-01-19] MEDS: ACETAMINOPHEN 325 MG TAB PO PRN (16:28)
[2017-01-19] MEDS: PATCH REMOVAL 1 EA PATCH TD SCH (21:00)
[2017-01-19] MEDS: GABAPENTIN 400 MG CAP PO SCH (22:40)
[2017-01-19] MEDS: valACYclovir 500 MG TAB PO SCH (23:04)
[2017-01-20] MEDS: SENNOSIDES/DOCUSATE SODIUM TAB PO SCH ×3 (00:34→20:35)
[2017-01-20] MEDS: METHOCARBAMOL 750 MG TAB PO PRN ×3 (01:25→20:35)
[2017-01-20] MEDS: HYDROmorphONE/DILAUDID 4 MG TAB PO PRN ×4 (04:49→21:55)
[2017-01-20] MEDS: DIAZEPAM 5 MG TAB PO PRN ×2 (04:49→21:58)
[2017-01-20] MEDS: morphINE SR 15 MG TAB PO SCH ×3 (06:11→20:51)
[2017-01-20] MEDS: BACLOFEN 20 MG TAB PO SCH ×2 (07:47→20:34)
--- NOTE | 2017-01-20 08:42 | NEUSURGPN ---
Assessment/Plan: A/P 66y/o female s/p exploration and revision of prior hardware with removal of S1 screws, T9-L5 PSF, T12/L1 TLIF/laminectomy, T9/10 laminectomy with spinal cord stimulator placement, revision of intrathecal pain pump catheter Plan: Optimize pain management- continue current meds. Lidocaine patch is helpful per patient. Jovany brace when OOB PT/OT DVT prophx: TEDs, SCDs, Lovenox Please notify NS with any change in neuro/motor exam Dispo planning - ok for DC once placement obtained. D/w Dr Castro Please call NS with any issues Subjective: Pt resting in chair, states the lidocaine patch is helpful. Daughter at bedside as well. Discussed plan to DC to [facility]. Objective: AAOx3 NAD VSS MAEx4 [place] brace on Motor 5/5 BLE with exception of L EHL 4+/5 Incision dressed cdi +LT Urinary Catheter in Place: No Catheter Insertion Date: 01/13/17 - Physician Discussed Patient with : Gloria Neurosurgery Physical Exam - Vitals, I&O, Labs I and O 01/19/17 01/20/17 01/21/17 05:59 05:59 05:59 Intake Total 500 1800 Balance 500 1800 Intake: Oral (ml) 500 1800 Other: Intake Quantity Yes Yes Sufficient Number of Voids Bedside Commode 1 Toilet 1 1 Number of Stools Bedside Commode 1 Vital Signs Temp Pulse Resp BP Pulse Ox 36.7 C 103 H 20 119/77 91 L 01/20/17 08:00 01/20/17 08:00 01/20/17 08:00 01/20/17 08:00 01/20/17 08:00 Laboratory Results 01/14/17 12:20 01/14/17 13:30 ICD10 Worksheet Patient Problems: Problems Problem Status Onset Spinal stenosis Acute
[2017-01-20] MEDS: LIDOCAINE 5% 1 EA PATCH TD SCH (09:25)
[2017-01-20] MEDS: VENLAFAXINE XR 75 MG CAP PO SCH (09:26)
[2017-01-20] MEDS: MULTIVITAMINS 1 EACH TAB PO SCH (09:26)
[2017-01-20] MEDS: ENOXAPARIN 40 MG/0.4 ML SYR SC SCH (09:26)
[2017-01-20] MEDS: busPIRone 15 MG TAB PO SCH ×2 (09:26→20:34)
[2017-01-20] MEDS: Mirabegron [Myrbetriq] 50 MG) PO SCH (09:27)
[2017-01-20] MEDS: GABAPENTIN 300 MG CAP PO SCH (09:27)
[2017-01-20] MEDS: FAMOTIDINE 20 MG TAB PO SCH ×2 (09:27→20:35)
[2017-01-20] MEDS: CEVIMELINE HCL 30 MG PO SCH ×2 (09:28→20:38)
--- NOTE | 2017-01-20 10:45 | WOCRNPDOC ---
WOCRN Advanced Assessment Note - Skin Integrity Problem, Advanced Assess Bilateral Posterior Ankle Dressing Type: Allevyn Life Dressing Description: Clean/Dry, Intact Integumentary Issue Intervention: Dressing Changed (by Enid MATOS) Wound Bed Constitution: Intact Serous Filled Blister (right achilles), Draining Serous Blister (Left achilles) Site Measurement - Head-to-Toe Length X Width X Depth (cm): Left Achilles: 1.2x1.5x0, Right achilles: 1.5x2.2xraised serous filled blister,. Right Medial Ankle: 0.4x0.8x0, Left Anterior/Medial ankle: 1x1.8x0 Pressure Injury Stage: Stage 2 Pressure Injury Present on Admit: No Skin Integrity Problem Comment: Right and left achilles have the deepest wounds. The wounds surfaced after the patient's surgery per report from patient and daughter. Right and left achilles wounds are the deepest and are likely medical art therapist related pressure injuries and are both stage 2. The medial/ anterior ankle wounds are Stage 1. The achilles wounds were cleaned with ns and gauze. Covered with skin prep and then applied tegaderm absorbant. Enid MATOS in room for all care. Right Buttock Pressure Injury Dressing Type: Gauze Dressing Description: Clean/Dry, Intact Exudate Amount: Minimal Exudate Characteristic(s): Serosanguinous Integumentary Issue Intervention: Dressing Changed Wound Bed Color: [place] Wound Bed Constitution: Smooth Tissue Site Measurement - Head-to-Toe Length X Width X Depth (cm): 0.3x15x0.2 Pressure Injury Stage: Stage 2, Staff Toxicologist Related Pressure Injury (AGGIE tubing) Pressure Injury Present on Admit: No Skin Integrity Problem Comment: Hospital acquired pressure injury from AGGIE tubing. Cleaned with gauze. Wound gel applied to wound bed and covered with Allevyn Gentle lite dressings.
[2017-01-20] MEDS: ONDANSETRON DISINTEGRATING 4 MG TAB PO PRN (13:29)
[2017-01-20] MEDS: valACYclovir 500 MG TAB PO SCH (20:35)
[2017-01-20] MEDS: GABAPENTIN 400 MG CAP PO SCH (20:35)
[2017-01-20] MEDS: PATCH REMOVAL 1 EA PATCH TD SCH (20:39)
[2017-01-21 00:59] VITALS: RESP 16
[2017-01-21] MEDS: HYDROmorphONE/DILAUDID 4 MG TAB PO PRN ×4 (01:57→14:27)
[2017-01-21] MEDS: DIAZEPAM 5 MG TAB PO PRN (05:35)
[2017-01-21] MEDS: morphINE SR 15 MG TAB PO SCH ×2 (06:02→14:14)
[2017-01-21 07:52] VITALS: BP 142/83; PULSE 99; TEMP 98.4; O2SAT 92
--- NOTE | 2017-01-21 07:55 | NEUSURGPN ---
Assessment/Plan: A/P 66y/o female s/p exploration and revision of prior hardware with removal of S1 screws, T9-L5 PSF, T12/L1 TLIF/laminectomy, T9/10 laminectomy with spinal cord stimulator placement, revision of intrathecal pain pump catheter Plan: Optimize pain management- continue current meds. Lidocaine patch is helpful per patient. [place] brace when OOB PT/OT DVT prophx: TEDs, SCDs, Lovenox Please notify NS with any change in neuro/motor exam Dispo planning - ok for DC once placement obtained. D/w Dr Castro Please call NS with any issues Subjective: Pt resting in bed, c/o R calf cramping Objective: AAOx3 NAD VSS MAEx4 Motor 5/5 BLE with exception of L EHL 4/5 +LT Urinary Catheter in Place: No Catheter Insertion Date: 01/13/17 - Physician Discussed Patient with : Gloria Neurosurgery Physical Exam - Vitals, I&O, Labs I and O 01/20/17 01/21/17 01/22/17 05:59 05:59 05:59 Intake Total 1800 500 Output Total 400 Balance 1800 100 Intake: Oral (ml) 1800 500 Output: Urine (ml) 400 Bedside Commode 400 Other: Intake Quantity Yes Sufficient Number of Voids Bedside Commode 1 Toilet 1 1 Number of Stools Bedside Commode 1 Vital Signs Temp Pulse Resp BP Pulse Ox 36.9 C 99 16 142/83 H 92 01/21/17 07:51 01/21/17 07:51 01/21/17 07:51 01/21/17 07:51 01/21/17 07:51 Laboratory Results 01/14/17 12:20 01/14/17 13:30 ICD10 Worksheet Patient Problems: Problems Problem Status Onset Spinal stenosis Acute
[2017-01-21] MEDS: busPIRone 15 MG TAB PO SCH (08:21)
[2017-01-21] MEDS: FAMOTIDINE 20 MG TAB PO SCH (08:21)
[2017-01-21] MEDS: MULTIVITAMINS 1 EACH TAB PO SCH (08:22)
[2017-01-21] MEDS: SENNOSIDES/DOCUSATE SODIUM TAB PO SCH (08:22)
[2017-01-21] MEDS: VENLAFAXINE XR 75 MG CAP PO SCH (08:22)
[2017-01-21] MEDS: BACLOFEN 20 MG TAB PO SCH (08:22)
[2017-01-21] MEDS: GABAPENTIN 300 MG CAP PO SCH (08:22)
[2017-01-21] MEDS: Mirabegron [Myrbetriq] 50 MG) PO SCH (08:23)
[2017-01-21] MEDS: CEVIMELINE HCL 30 MG PO SCH (08:23)
[2017-01-21] MEDS: ENOXAPARIN 40 MG/0.4 ML SYR SC SCH (08:24)
[2017-01-21] MEDS: LIDOCAINE 5% 1 EA PATCH TD SCH ×2 (10:20→11:41)
--- NOTE | 2017-01-21 13:12 | PDIAF ---
- Diagnosis Code Status: Full Code - Medication Management Discharge Medications: Medications to Continue on Transfer Amphet Asp and D/Amphet [Adderall 10 MG (*)] 5 mg PO DAILY PRN 12/22/16 [Last Taken 01/13/17 04:30] Baclofen [Baclofen 20 mg (*)] 20 mg PO DAILY 12/22/16 [Last Taken 01/13/17 04:30 ] Baclofen [Baclofen 20 mg (*)] 40 mg PO HS 12/22/16 [Last Taken 01/12/17 19:30] Cevimeline HCl [Evoxac] 30 mg PO BID 12/22/16 [Last Taken 01/12/17 19:30] Gabapentin [Neurontin] 1,200 mg PO HS 12/22/16 [Last Taken 01/12/17 19:30] Gabapentin [Neurontin] 600 mg PO DAILY 12/22/16 [Last Taken 01/13/17 04:30] HYDROmorphone HCL [Dilaudid 4 mg (*)] 4 mg PO Q4H PRN 12/22/16 [Last Taken 01/12 19:30] Intrathecal Pump (Hydromorphone 2.2 Mg-Bupivicaine 0.94mg/Day) 0.94 ml IT CONT 12/22/16 [Last Taken Unknown] Lansoprazole [Prevacid] 30 mg PO DAILY 12/22/16 [Last Taken 01/13/17 04:30] Mirabegron [Myrbetriq] 50 mg PO DAILY 12/22/16 [Last Taken 01/13/17 04:30] Valacyclovir HCl [Valtrex] 1,000 mg PO HS 12/22/16 [Last Taken 01/13/17 04:30] Venlafaxine Xr [Effexor Xr 75MG (*)] 150 mg PO DAILY 12/22/16 [Last Taken 19:30] busPIRone [Buspar (*)] 30 mg PO BID 12/22/16 [Last Taken 01/13/17 04:30] Multivitamins [Multivitamin (*)] 1 each PO DAILY 12/27/16 [Last Taken 01/07/17] Acetaminophen [Tylenol 325mg (*)] 325 - 650 mg PO Q4HRS PRN #0 tab 01/21/17 [ Last Taken Unknown] Diazepam [Valium 5 MG (*)] 2.5 - 5 mg PO QID PRN #0 tab 01/21/17 [Last Taken Unknown] Lidocaine 5% [Lidoderm 5% Patch (*)] 1 ea TD DAILY #0 patch 01/21/17 [Last Taken Unknown] Methocarbamol [Robaxin 750 mg (*)] 750 mg PO QID PRN #0 tab 01/21/17 [Last Taken Unknown] Ondansetron Odt [Zofran Odt 4 mg (*)] 4 - 8 mg PO Q6HRS PRN #0 tab 01/21/17 [ Last Taken Unknown] Patch Removal 1 ea TD DAILY21 #0 patch 01/21/17 [Last Taken Unknown] Polyethylene Glycol 3350 [Miralax 17 gm (*)] 17 gm PO DAILY PRN #0 pkt 01/21/17 [Last Taken Unknown] Sennosides/Docusate Sodium [Senokot-S] 1 - 2 tab PO BID #0 tab 01/21/17 [Last Taken Unknown] morphINE SR [Ms Contin/Oramorph 15 mg (*)] 30 mg PO Q8 #0 tab 01/21/17 [Last Taken Unknown] Discharge Medications: Refer to the Discharge Home Medication list for PRN reason. PICC Care - Routine: N/A - Orders Services needed: Registered Nurse, Certified Furniture Duster, Physical Therapy, Occupational Therapy Diet Recommendation: no restrictions on diet Diet Texture: Regular Texture Diet Bauer: Not applicable Wound Care Instructions: change dressing daily with tape and gauze - Follow Up Care Current Providers and Referrals: NONE *PRIMARY CARE P,. [Primary Care Provider] -
[2017-01-21] MEDS: METHOCARBAMOL 750 MG TAB PO PRN (14:27)
== END 2017-01-21 14:45 | DRG 460 ==
LOC: F3N 05:41 → F2N 17:07 → F3N 01-15 17:12
PROVIDERS: ADMIT Neurological Surgery; ATTEND Neurological Surgery
PROC: 0RGA071 Fusion of Thoracolumbar Vertebral Joint with Autologous Tissue Substitute, Posterior Approach, Posterior Column, Open Approach (ICD-10-PCS; principal; 2017-01-13 07:15)
PROC: 0SP00AZ Removal of Interbody Fusion Device from Lumbar Vertebral Joint, Open Approach (ICD-10-PCS; principal; 2017-01-13 07:15)
PROC: 00HV0MZ Insertion of Neurostimulator Lead into Spinal Cord, Open Approach (ICD-10-PCS; principal; 2017-01-13 07:15)
PROC: 4A1004G Monitoring of Central Nervous Electrical Activity, Intraoperative, Open Approach (ICD-10-PCS; principal; 2017-01-13 07:15)
PROC: 8E0WXBZ Computer Assisted Procedure of Trunk Region (ICD-10-PCS; principal; 2017-01-13 07:15)
PROC: 0SG0071 Fusion of Lumbar Vertebral Joint with Autologous Tissue Substitute, Posterior Approach, Posterior Column, Open Approach (ICD-10-PCS; principal; 2017-01-13 07:15)
PROC: 0RTB0ZZ Resection of Thoracolumbar Vertebral Disc, Open Approach (ICD-10-PCS; principal; 2017-01-13 07:15)
PROC: 0RG7071 Fusion of 2 to 7 Thoracic Vertebral Joints with Autologous Tissue Substitute, Posterior Approach, Posterior Column, Open Approach (ICD-10-PCS; principal; 2017-01-13 07:15)
PROC: 0RGA0AJ Fusion of Thoracolumbar Vertebral Joint with Interbody Fusion Device, Posterior Approach, Anterior Column, Open Approach (ICD-10-PCS; principal; 2017-01-13 07:15)
PROC: 00NX0ZZ Release Thoracic Spinal Cord, Open Approach (ICD-10-PCS; principal; 2017-01-13 07:15)
PROC: 0JH70MZ Insertion of Stimulator Generator into Back Subcutaneous Tissue and Fascia, Open Approach (ICD-10-PCS; principal; 2017-01-13 07:15)
DX: M96.1 Postlaminectomy syndrome, not elsewhere classified (principal); M43.16 Spondylolisthesis, lumbar region; M54.40 Lumbago with sciatica, unspecified side; M40.295 Other kyphosis, thoracolumbar region; I95.9 Hypotension, unspecified; F41.9 Anxiety disorder, unspecified; G89.4 Chronic pain syndrome; L89.512 Pressure ulcer of right ankle, stage 2; L89.522 Pressure ulcer of left ankle, stage 2; L89.312 Pressure ulcer of right buttock, stage 2; G47.33 Obstructive sleep apnea (adult) (pediatric); H81.09 Meniere's disease, unspecified ear
CPT/HCPCS: 97110-GP; 97116-GP; 97162-GP; 97166-GO; 97535-GO; C1713; C1755; C1762; C1778; C1787; C1820; C1883; G8978-GP-CM; G8979-GP-CJ; G8987-GO-CL; G8988-GO-CJ; J0690; J1100; J1170; J1650; J2001; J2250; J2274; J2370; J2405; J2704; J7060

== ENCOUNTER 2019-01-16 11:19 | Inpatient (IN) | payer OTHER ==
[2019-01-16] MEDS ORDERED: ACETAMINOPHEN 500 MG TAB PO ONE (12:12)
[2019-01-16] MEDS ORDERED: ceFAZolin 2 GM/DEXTROSE 100 ML IV ONE (12:12)
[2019-01-16] MEDS ORDERED: GABAPENTIN 300 MG CAP PO ONE (12:12)
[2019-01-16] MEDS ORDERED: LR 1,000 ML IV ONE (12:13)
[2019-01-16] MEDS ORDERED: LIDOCAINE 1% 2 ML INJ ID PRN (12:13)
[2019-01-16] MEDS ORDERED: SURGIFLO MATRIX KIT WITH THROMBIN 8 ML TP ONE (12:34)
[2019-01-16] MEDS ORDERED: EPINEPHrine 1 MG/ML INJ ONE (12:35)
[2019-01-16] MEDS ORDERED: BUPIVACAINE 0.25% 30 ML SDV ONE (12:35)
[2019-01-16] MEDS ORDERED: THROMBIN (BOVINE) 5,000 UNIT VIAL TP ONE (12:35)
[2019-01-16] MEDS ORDERED: BACITRACIN 50,000 UNITS/10 ML SYR IRR ONE (12:35)
[2019-01-16] MEDS ORDERED: CHLORHEXIDINE GLUC HIBICLENS 118 ML BTL TP ONE (12:35)
--- NOTE | 2019-01-16 13:56 | PDHPUP ---
History & Physical Update H&P update statement: This history and physical update is based on an assessment of the patient which was completed after admission or registration (within 24 hours), but prior to the surgery/procedure. H&P update: H&P reviewed & patient examined, no change in patient's condition since H&P completed (Consents signed and site marked. All questions answered.)
[2019-01-16] MEDS ORDERED: MIDAZOLAM 2 MG/2 ML VIAL IVP ONE (14:04)
--- NOTE | 2019-01-16 14:05 | PDANEPAE ---
ANE Past Medical History - Cardiovascular History Hx Hypertension: Yes Hx Arrhythmias: Yes Hx Chest Pain: No Hx Coronary Artery / Peripheral Vascular Disease: No Hx CHF / Valvular Disease: No Hx Palpitations: No Cardiovascular History Comment: paroxysmal atrial tachycardia. htn - Pulmonary History Hx COPD: No Hx Asthma/Reactive Airway Disease: No Hx Recent Upper Respiratory Infection: No Hx Oxygen in Use at Home: No Hx Sleep Apnea: Yes Sleep Apnea Screening Result - Last Documented: Positive Pulmonary History Comment: uses bipap for BUD- instructed pt to bring to hospital - Neurologic History Hx Cerebrovascular Accident: No Hx Seizures: No Hx Dementia: No Neurologic History Comment: adhesive arachnoidits. bilateral legs shake since last surgery, using monthly botox injections to slow movements - Endocrine History Hx Diabetes: No - Renal History Hx Renal Disorders: No - Liver History Hx Hepatic Disorders: No - Neurological & Psychiatric Hx Hx Neurological and Psychiatric Disorders: Yes Neurological / Psychiatric History Comment: anxiety and depression - Cancer History Hx Cancer: No - Congenital Disorder History Hx Congenital Disorders: No - GI History Hx Gastrointestinal Disorders: Yes Gastrointestinal History Comment: gerd. weekly episodes of diarrhea from opiod hx, wants no stool stimulators - Other Health History Other Health History: chronic pain syndrome. bilateral hearing aides - Chronic Pain History Chronic Pain: Yes (back and bilateral legs) - Surgical History Prior Surgeries: 01/13/17 TLIF t12-l1, l1-2 with Rajpal. spinal fusions. right rotator cuff. fusion L2-S1. bilateral carpal tunnel ANE Review of Systems Review of Systems: - Exercise capacity METS (RN): 4 METS ANE Patient History - Allergies Allergies/Adverse Reactions: acetazolamide Allergy (Verified 01/03/19 16:01) DIZZINESS iodine Allergy (Verified 01/03/19 16:01) ERUPTED WITH BLISTERS CLOROPHENE Allergy (Severe, Uncoded 01/16/19 13:05) BLISTERS - Home Medications Home Medications: Baclofen [Baclofen 20 mg (*)] 20 mg PO DAILY 12/22/16 [Last Taken 01/16/19 07:30 ] Baclofen [Baclofen 20 mg (*)] 40 mg PO HS 12/22/16 [Last Taken 01/15/19] Gabapentin [Neurontin] 1,200 mg PO BID 12/22/16 [Last Taken 01/15/19] Lansoprazole [Prevacid] 30 mg PO DAILY 12/22/16 [Last Taken 01/16/19 07:30] Mirabegron [Myrbetriq] 50 mg PO DAILY 12/22/16 [Last Taken 01/16/19 07:30] Valacyclovir HCl [Valtrex] 1,000 mg PO HS 12/22/16 [Last Taken 01/15/19] Multivitamins [Multivitamin (*)] 1 each PO DAILY 12/27/16 [Last Taken 1 Week Ago ~01/09/19] Aspirin [Aspirin 81mg (*)] 81 mg PO HS 01/03/19 [Last Taken 1 Week Ago ~01/09/19 ] Calcium Carb W/Vit D [Calcium Carb W/Vit D 500/200 (*)] 500 mg PO DAILY [Last Taken 1 Week Ago ~01/09/19] Eszopiclone [Lunesta] 3 mg PO HS 01/03/19 [Last Taken 01/14/19] Herbals/Supplements -Info Only 1 ea PO DAILY 01/03/19 [Last Taken 1 Week Ago ~] Lisinopril 30 mg PO HS 01/03/19 [Last Taken 01/14/19] Meloxicam 15 mg PO DAILY 01/03/19 [Last Taken 01/14/19] Metoprolol Tartrate [Lopressor 50 mg (*)] 50 mg PO BID 01/03/19 [Last Taken 07:30] [place]-3 Fatty Acids [Fish Oil 1000 mg (*)] 1,000 mg PO HS 01/03/19 [Last Taken 1 Week Ago ~01/09/19] amLODIPine BESYLATE [Norvasc 5 mg (*)] 5 mg PO HS 01/03/19 [Last Taken 01/15/19] oxyCODONE IR [Oxycodone Ir (*)] 10 mg PO TID 01/03/19 [Last Taken 01/14/19] - NPO status NPO Since - Liquids (Date): 01/15/19 NPO Since - Liquids (Time): 23:00 NPO Since - Solids (Date): 01/15/19 NPO Since - Solids (Time): 23:00 - Smoking Hx Smoking Status: Former smoker - Family Anes Hx Family Hx Anesthesia Complications: none ANE Labs/Vital Signs - Vital Signs Blood Pressure: 136/73 Heart Rate: 62 Respiratory Rate: 18 O2 Sat (%): 92 Height: 154.94 cm Weight: 66.678 kg ANE Physical Exam - Airway Neck exam: FROM Mallampati Score: Class 2 Mouth exam: normal dental/mouth exam - Pulmonary Pulmonary: no respiratory distress - Cardiovascular Cardiovascular: regular rate and rhythym - ASA Status ASA Status: II ANE Anesthesia Plan Anesthesia Plan: general endotracheal anesthesia
[2019-01-16] MEDS ORDERED: THROMBIN (BOVINE) 20,000 UNIT VIAL TP ONE (14:20)
[2019-01-16] MEDS ORDERED: ONDANSETRON 4 MG/2 ML VIAL ONE ×2 (14:23→19:30)
[2019-01-16] MEDS ORDERED: DEXAMETHASONE 4 MG/ML VIAL ONE ×2 (14:23)
[2019-01-16] MEDS ORDERED: PROPOFOL/EMULSION 500 MG/50 ML BOTTLE IV ONE ×3 (14:23→17:16)
[2019-01-16] MEDS ORDERED: ROCURONIUM 50 MG/5 ML VIAL ONE (14:23)
[2019-01-16] MEDS ORDERED: LIDOCAINE 2% 100 MG/5 ML SYR ONE (14:23)
[2019-01-16] MEDS ORDERED: PHENYLEPHRINE 10 MG/ML SDV ONE (14:24)
[2019-01-16] MEDS ORDERED: BISACODYL 10 MG SUPP PR PRN (14:46)
[2019-01-16] MEDS ORDERED: diphenhydrAMINE 25 MG CAP PO PRN (14:46)
[2019-01-16] MEDS ORDERED: ONDANSETRON 4 MG/2 ML VIAL IVP PRN ×2 (14:46→16:15)
[2019-01-16] MEDS ORDERED: LACTULOSE 20 GM/30 ML UDCUP PO PRN (14:46)
[2019-01-16] MEDS ORDERED: NS 1,000 ML IV SCH (15:00)
[2019-01-16] MEDS ORDERED: NALOXONE HCL 0.4 MG/ML INJ IVP PRN (16:15)
[2019-01-16] MEDS ORDERED: fentaNYL 100 MCG/2 ML INJ IVP PRN (16:15)
[2019-01-16] MEDS ORDERED: ALBUTEROL 3 ML DEYVIAL IH PRN (16:15)
[2019-01-16] MEDS ORDERED: GLYCOPYRROLATE 0.2 MG/1 ML VIAL ONE ×2 (17:35)
[2019-01-16] MEDS ORDERED: NEOSTIGMINE METHYLSULFATE 5 MG/5 ML SYR ONE (17:36)
--- NOTE | 2019-01-16 18:36 | POSTOPPROG ---
Post Op Note Date of Operation: 01/16/19 Surgeon: Adonis Castro Storage Architect: Elizabeth Easley NP Anesthesiologist: Dr Orellana Anesthesia: GET(General Endotracheal) Pre-op Diagnosis: Kyphosis, stenosis Post-op Diagnosis: Thoracic fusion Procedure: T7-8, T8-9 Interbody cages with fusion tie in T6-T9 Inf/Abcess present in the surg proc area at time of surgery?: No Depth: Deep Incisional (Fascial) EBL: 100-500 Total fluids administered: see anesthesia Complications: none Drains: Johnny Hoff Date of Surgery: 01/16/19 Post Op Day: 0 Assessment/Plan: Assessment: 68 yr old F s/p T7-8, T8-9 interbody cage with T6-9 fusion PLF T9-10 Plan: -Admit med surg -PT/OT -[place] brace on when out of bed -AGGIE to bulb suction -Post op xrays in am -Please call with questions/concerns Subjective: waking up in pacu Objective: waking up in pacu No facial droop MAEx4 5/5 BLE Dressing CDI AGGIE patent Appropriate Neuro Check Frequency Ordered: Yes
--- NOTE | 2019-01-16 18:44 | POSTANESTH ---
Post Anesthetic Evaluation Cardiovascular Status: Similar to Pre-Op Cond Respiratory Status: Similar to Pre-op Cond. Level of Consciousness/Mental Status: Mildly Sleepy, Arousable Pain Control: Adequate, Prn Tx Ordered Nausea/Vomiting Control: Adequate, Prn Tx Ordered Complications Possibly Related to Anesthesia: None Noted
--- NOTE | 2019-01-16 19:24 | GOP ---
[f rep st] OPERATIVE REPORT DATE OF OPERATION: 01/16/2019 SURGEON: Adonis Castro MD ELEMENTARY SCHOOL READING TEACHER: Elizabeth Easley NP PREOPERATIVE DIAGNOSIS: 1. Thoracic kyphosis with spinal stenosis, T6 through T8, with history of prior fusion T9 to pelvis. 2. Back pain. 3. Radiculopathy. 4. Treatment refractory to nonoperative intervention. 5. Questionable pseudoarthrosis POSTOPERATIVE DIAGNOSIS: 1. Thoracic kyphosis with spinal stenosis, T6 through T8, with history of prior fusion T9 to pelvis. 2. Back pain. 3. Radiculopathy. 4. Treatment refractory to nonoperative intervention. 5. Questionable pseudoarthrosis PROCEDURE PERFORMED: 1. Posterior arthrodesis with approach to T6, T7, T8, T9, and T10. 2. Exploration of prior thoracic hardware T9-T10. 3. Decompressive laminectomy T7-T8 and T8-T9. 4. Bilateral facetectomies T7-T8 with left-sided diskectomy and interbody fusion using a 6 x 22 mm titanium coated PEEK cage filled with morselized autograft and allograft. 5. T8-T9 bilateral facetectomies and left-sided diskectomy with interbody fusion using a 6 x 22 mm titanium coated PEEK cage filled with morselized autograft and allograft. 6. Posterolateral fusion on the right between T6 and T10 with morselized autograft and allograft. 7. Use of intraoperative 3D Stealth navigation. 8. Use of intraoperative fluoroscopy, less than 1 hour physician time. 9. Use of neuromonitoring. 10. Kyphosis correction. FINDINGS: there was no evidence of hardware loosening on examination SPECIMENS: None. ESTIMATED BLOOD LOSS: 150 mL. INDICATIONS: The patient is a very pleasant 68-year-old woman with history of prior correction for kyphosis and scoliosis who presented with worsening thoracic kyphosis. She also had some evidence of adjacent level breakdown with stenosis at the T7, T8, T9 levels. After discussion of the risks, benefits, and treatment alternatives and after failing nonoperative intervention, we decided to proceed forth with surgery as described above. DESCRIPTION OF PROCEDURE: The patient was brought to the operative theater and underwent general endotracheal anesthesia without complications. She had Venodynes, JEWELL hose, and the appropriate lines placed by Anesthesia. The patient was then flipped prone onto the Johnny table and all bony processes inspected and padded. The previous thoracic incision was identified and marked more cranially. This area was prepped and draped in the usual sterile surgical fashion. A time-out was completed per protocol and the patient received antibiotics within 1 hour of incision. The incision was infiltrated with Marcaine with epinephrine. The incision was taken down with scalpel blade. Using monopolar, the incision was taken down in the midline through the lumbodorsal fat to the thoracic dorsal fascia of the T6 spinous process. A subperiosteal dissection was carried out to the transverse process of T6, T7, T8, T9, and T10 levels. Deep retractors were placed to maintain exposure. Upon exploration of the hardware, we did not find any obvious loosening of the T19 screws and opted to leave these in place. We attached the 3D Stealth navigation clamp to the spinous process of T8 and completed a 3D Stealth navigation spin. Using 3D Stealth navigation, we placed the instructor pilot holes for the bilateral pedicle screws at T6, T7, and T8. All holes were manually palpated with no evidence of any cortical breaches. We then tapped and placed 4.5 x 40 mm screws bilaterally into the T6, T7, and T8 levels from the [employer] Solera 5.5 x 6 system. A 3D Stealth navigation spin demonstrated that the left T6 screw was lateral. We then repositioned the screw more medially and another 3D Stealth navigation spin demonstrated good placement of the hardware. At this point, using a combination of bur tip on the drill bit, [place] punches , and [place] rongeur, we completed decompressive laminectomy T7-T8 and T8-T9 with bilateral aggressive facetectomies. We distracted the left T8-T9 level and completed diskectomy. We measured interbody space and placed a 6 x 22 mm titanium coated PEEK cage filled with morselized autograft and allograft anteriorly and toward the midline. We packed additional morcellized autograft in the disk space for the interbody fusion. We let down the distraction. We then moved up to T7-T8 level, distracted the interspace, and completed the left- sided T7-T8 diskectomy. We prepared the cartilaginous endplates and measured the interbody space. We placed a 6 x 22 mm titanium coated PEEK cage filled with morselized autograft and allograft anteriorly and towards the midline. We packed additional morcellized autograft in the disk space for the interbody fusion. We let down distraction and decorticated the bone on the right side between T6 and T10. We then placed lateral connectors between T9 and T10 and connected up to rods which were reduced sequentially into the T8, then T7, then T6 levels to reduce her overall kyphosis. We then used sequential compression dorsally at the T7- T8 and T8-T9 levels. We screwed the cap screws onto the rods and tightened them down per the vessel scrapper's setting. The wound was irrigated copiously with bacitracin irrigation. We placed morselized autograft and allograft for the posterolateral fusion between T6 and T10 on the right side. A drain was left in the subfascial space. The wound then closed in multiple layers including Vicryl sutures for the deep layers and Dermabond for the skin. The patient's wounds were dressed sterilely. She was still asleep at the time of this dictation but there were no complications and no noted changes on neuromonitoring throughout the procedure. COMPLICATIONS: None. /[id number]/MODL MTDD
[2019-01-16] MEDS ORDERED: fentaNYL 100 MCG/2 ML INJ ONE (19:30)
[2019-01-16] MEDS: FAMOTIDINE 20 MG TAB PO SCH (20:41)
[2019-01-16] MEDS: oxyCODONE IR 5 MG TAB PO PRN ×2 (20:41→21:49)
[2019-01-16] MEDS: valACYclovir 500 MG TAB PO SCH (20:42)
[2019-01-16] MEDS: LISINOPRIL 20 MG TAB PO SCH (20:42)
[2019-01-16] MEDS: SENNOSIDES/DOCUSATE SODIUM TAB PO SCH (20:42)
[2019-01-16] MEDS: BACLOFEN 20 MG TAB PO SCH (20:43)
[2019-01-16] MEDS: GABAPENTIN 400 MG CAP PO SCH (20:43)
[2019-01-16] MEDS: amLODIPine BESYLATE 5 MG TAB PO SCH (20:43)
[2019-01-16] MEDS: METOPROLOL TARTRATE 50 MG TAB PO SCH (20:44)
--- NOTE | 2019-01-16 21:42 | PDMN ---
Medical Necessity Medical necessity: Pt meets inpt criteria per MD order and [facility] [id number] Spine, Scoliosis, Posterior Instrumentation, 4 days and Musculoskeletal surg GRG, exploration of spinal fusion, [facility] IP only list, op: thoracic fusion, T7-8, T8-9 interbody cages w/fusion tie in T6-T9, PLF T9-10. 68 y/o w/hx previous kyphosis and scoliosis now w/worsening thoracic kyphosis and evidence of adjacent level breakdown w/stenosis at T7, T8, T9 levels, admitted for above surg and post-op care.
[2019-01-16] MEDS: METHOCARBAMOL 750 MG TAB PO PRN (21:49)
[2019-01-16] MEDS: ACETAMINOPHEN 500 MG TAB PO SCH (22:51)
[2019-01-16] MEDS: ceFAZolin 2 GM/DEXTROSE 100 ML IV SCH (23:52)
[2019-01-17] MEDS: oxyCODONE IR 5 MG TAB PO PRN ×4 (03:50→21:23)
[2019-01-17 05:12] LABS: PLATELET COUNT 194 10^3/uL (150-400)
[2019-01-17] MEDS: ceFAZolin 2 GM/DEXTROSE 100 ML IV SCH (06:29)
[2019-01-17] MEDS: ACETAMINOPHEN 500 MG TAB PO SCH ×3 (06:29→22:26)
--- NOTE | 2019-01-17 07:39 | NEUSURGPN ---
Date of Surgery: 01/16/19 Post Op Day: 1 Assessment/Plan: 68 yo female s/p T7/8 and T8/9 interbody cages with extension of fusion T6-T9 - pain control - PT/OT - wear Jovany brace when out of bed - postop x-rays pending - continue AGGIE drain - please contact neurosurgery with any changes in neuro status/exam Discussed with Dr. Castro. Subjective: Having localized back pain at the incision site. Leg pain unchanged compared to prior to surgery. Objective: Awake. Alert. PERRL. EOMI Facial expression symmetrical Muscle strength full at 5/5 except for left DF and PF at 4/5, somewhat limited due to pain and effort - Physician Discussed Patient with Dr.: Castro Neurosurgery Physical Exam - Vitals, I&O, Labs I and O 01/16/19 01/17/19 01/18/19 05:59 05:59 05:59 Intake Total 2650 Output Total 1920 Balance 730 Weight 66.678 kg Intake: Oral (ml) 650 IV Intake (ml) 2000 Output: Urine (ml) 1625 Catheter 1625 Estimated Blood Loss (ml) 150 Emesis (ml) 0 AGGIE Drain Output (ml) 145 Right Back Johnny Hoff 145 Vital Signs Temp Pulse Resp BP Pulse Ox 36.7 C 72 17 103/66 92 01/17/19 03:45 01/17/19 03:45 01/17/19 03:45 01/17/19 03:45 01/17/19 03:45 Laboratory Results 01/17/19 04:47 01/17/19 04:47 ICD10 Worksheet Patient Problems: Problems Problem Status Onset Spinal stenosis Acute
[2019-01-17] MEDS: METHOCARBAMOL 750 MG TAB PO PRN ×2 (08:23→20:03)
[2019-01-17] MEDS: BACLOFEN 20 MG TAB PO SCH ×2 (09:30→20:04)
[2019-01-17] MEDS: FAMOTIDINE 20 MG TAB PO SCH ×2 (09:33→20:03)
[2019-01-17] MEDS: PANTOPRAZOLE SODIUM 40 MG TAB PO SCH (09:33)
[2019-01-17] MEDS: GABAPENTIN 400 MG CAP PO SCH ×2 (09:33→20:04)
[2019-01-17] MEDS: METOPROLOL TARTRATE 50 MG TAB PO SCH ×2 (09:36→20:04)
[2019-01-17] MEDS: Mirabegron [Myrbetriq] 50 MG PO SCH (09:36)
[2019-01-17] MEDS: SENNOSIDES/DOCUSATE SODIUM TAB PO SCH ×2 (09:37→20:03)
--- NOTE | 2019-01-17 16:16 | ASMTCMCOM ---
CM Note CM Note Notes: Pt had planned surgery for stenosis. PT/OT rec inpatient rehab. Pt requests referral to [facility] where she has been before. Referral sent and insurance auth will be needed. Pt dghtr is bedside for support. CM to follow. D/c plan: [facility] inpatient acute Date Signed: 01/17/2019 04:16 PM Electronically Signed By:ANA LAURA Hodges
[2019-01-17] MEDS: valACYclovir 500 MG TAB PO SCH (20:03)
[2019-01-17] MEDS: LISINOPRIL 20 MG TAB PO SCH (20:03)
[2019-01-17] MEDS: amLODIPine BESYLATE 5 MG TAB PO SCH (20:05)
[2019-01-18] MEDS: METHOCARBAMOL 750 MG TAB PO PRN ×2 (06:55→14:57)
[2019-01-18] MEDS: ACETAMINOPHEN 500 MG TAB PO SCH ×3 (06:55→22:33)
--- NOTE | 2019-01-18 07:34 | NEUSURGPN ---
Assessment/Plan: 68 yo female s/p T7/8 and T8/9 interbody cages with extension of fusion T6-T9 POD2 - pain control, will adjust gabapentin to tid dosing. Flexeril ordered to alternate with Robaxin - PT/OT - wear Jovany brace when out of bed - postop x-rays with intact hardwarte - continue AGGIE drain this am. Will eval for potential removal later today - please contact neurosurgery with any changes in neuro status/exam Seen with Dr. Castro Subjective: Having localized back pain at the incision site Objective: Awake. Alert. PERRL. EOMI Facial expression symmetrical Muscle strength full at 5/5 except for left DF and PF at 4/5, Incision c/d/i - Physician Patient Seen by : Gloria Neurosurgery Physical Exam - Vitals, I&O, Labs I and O 01/17/19 01/18/19 01/19/19 05:59 05:59 05:59 Intake Total 2650 850 Output Total 1920 375 Balance 730 475 Weight 66.678 kg 66.678 kg Intake: Oral (ml) 650 850 IV Intake (ml) 2000 Output: Urine (ml) 1625 0 Bedside Commode 0 Catheter 1625 Estimated Blood Loss (ml) 150 Emesis (ml) 0 AGGEI Drain Output (ml) 145 375 Right Back Johnny Hoff 145 375 Other: Intake Quantity Yes Sufficient Number of Voids Toilet 1 1 Vital Signs Temp Pulse Resp BP Pulse Ox 36.6 C 73 17 112/66 94 01/18/19 04:00 01/18/19 04:00 01/18/19 04:00 01/18/19 06:51 01/18/19 04:00 Laboratory Results 01/17/19 04:47 01/17/19 04:47 ICD10 Worksheet Patient Problems: Problems Problem Status Onset Spinal stenosis Acute
[2019-01-18] MEDS ORDERED: GABAPENTIN 400 MG CAP PO SCH (09:00)
[2019-01-18] MEDS ORDERED: GABAPENTIN 300 MG CAP PO SCH (10:00)
[2019-01-18] MEDS: SENNOSIDES/DOCUSATE SODIUM TAB PO SCH ×2 (10:13→20:43)
[2019-01-18] MEDS: PANTOPRAZOLE SODIUM 40 MG TAB PO SCH (10:13)
[2019-01-18] MEDS: FAMOTIDINE 20 MG TAB PO SCH ×2 (10:13→20:44)
[2019-01-18] MEDS: POLYETHYLENE GLYCOL 3350 17 GM PKT PO PRN (10:13)
[2019-01-18] MEDS: ENOXAPARIN 40 MG/0.4 ML SYR SC SCH (10:14)
[2019-01-18] MEDS ORDERED: NS 1,000 ML IV ONE (10:36)
[2019-01-18] MEDS ORDERED: GABAPENTIN 100 MG CAP PO ONE (10:39)
[2019-01-18] MEDS: Mirabegron [Myrbetriq] 50 MG PO SCH (10:45)
[2019-01-18] MEDS: METOPROLOL TARTRATE 50 MG TAB PO SCH ×2 (10:45→20:39)
[2019-01-18] MEDS: BACLOFEN 20 MG TAB PO SCH ×2 (12:11→20:41)
[2019-01-18] MEDS: oxyCODONE IR 5 MG TAB PO PRN ×2 (12:16→15:28)
[2019-01-18] MEDS: CYCLOBENZAPRINE 10 MG TAB PO SCH ×3 (13:00→22:34)
[2019-01-18] MEDS: GABAPENTIN 100 MG CAP PO SCH (14:34)
--- NOTE | 2019-01-18 15:28 | ASMTCMCOM ---
CM Note CM Note Notes: Pt clinically accepted at [facility] inpatient rehab, spoke with Karnie Stevens. [facility] has sent for insurance authorization. Karine will visit pt this afternoon. D/c plan: [facility] inpatient rehab Date Signed: 01/18/2019 03:28 PM Electronically Signed By:ANA LAURA Hodges
[2019-01-18] MEDS: HYDROmorphONE/DILAUDID 2 MG TAB PO PRN ×2 (19:04→23:18)
[2019-01-18] MEDS: amLODIPine BESYLATE 5 MG TAB PO SCH (20:39)
[2019-01-18] MEDS: LISINOPRIL 20 MG TAB PO SCH (20:40)
[2019-01-18] MEDS: GABAPENTIN 300 MG CAP PO SCH (20:42)
[2019-01-18] MEDS: valACYclovir 500 MG TAB PO SCH (20:42)
[2019-01-18] MEDS: morphINE SR 15 MG TAB PO SCH (20:43)
[2019-01-19] MEDS: ACETAMINOPHEN 500 MG TAB PO SCH ×3 (06:58→22:45)
[2019-01-19] MEDS: PANTOPRAZOLE SODIUM 40 MG TAB PO SCH (08:04)
[2019-01-19] MEDS: CYCLOBENZAPRINE 10 MG TAB PO SCH ×3 (08:04→21:34)
[2019-01-19] MEDS: GABAPENTIN 300 MG CAP PO SCH ×2 (08:04→21:33)
[2019-01-19] MEDS: FAMOTIDINE 20 MG TAB PO SCH ×2 (08:04→21:32)
[2019-01-19] MEDS: HYDROmorphONE/DILAUDID 2 MG TAB PO PRN ×4 (08:04→21:34)
[2019-01-19] MEDS: BACLOFEN 20 MG TAB PO SCH ×2 (08:04→21:33)
[2019-01-19] MEDS: SENNOSIDES/DOCUSATE SODIUM TAB PO SCH ×2 (08:05→21:35)
[2019-01-19] MEDS: ENOXAPARIN 40 MG/0.4 ML SYR SC SCH (08:07)
[2019-01-19] MEDS: MAGNESIUM HYDROXIDE 30 ML UDCUP PO PRN (08:07)
--- NOTE | 2019-01-19 08:25 | NEUSURGPN ---
Assessment/Plan: 68 yo female s/p T7/8 and T8/9 interbody cages with extension of fusion T6-T9 POD3. post op films with hardware in good position and stable alignment. - pain control, continue current course gabapentin, flexeril, robaxin, MSContin , Dilaudid - PT/OT - wear [place] brace when out of bed - continue AGGIE drain this am, likely remove before DC. - dispo- hopefully to rehab later today. - please contact neurosurgery with any changes in neuro status/exam Seen with Dr. Castro Subjective: continued pain on her right side near the surgical site. Objective: Awake. AAOx3 mild distress PERRL. EOMI Facial expression symmetrical MAEX4 Muscle strength full at 5/5 except for left DF and PF at 4/5 stable Incision c/d/i, dressed jpx1 125 out yesterday, 70 out so far today, bloody. - Physician Discussed Patient with Dr.: Castro Neurosurgery Physical Exam - Vitals, I&O, Labs I and O 01/18/19 01/19/19 01/20/19 05:59 05:59 05:59 Intake Total 850 1350 Output Total 375 425 70 Balance 475 925 -70 Weight 66.678 kg Intake: Oral (ml) 850 350 IV Infused (ml) 1000 Ns 1,000 ml @ 3000 mls/hr 1000 IV ONCE ONE Rx#: [id number] Output: Urine (ml) 0 300 Bedside Commode 0 Toilet 300 AGGIE Drain Output (ml) 375 125 70 Right Back Johnny Hoff 375 125 70 Other: Intake Quantity Yes Sufficient Number of Voids Toilet 1 1 Vital Signs Temp Pulse Resp BP Pulse Ox 36.9 C 79 17 110/80 96 01/19/19 07:56 01/19/19 07:56 01/19/19 07:56 01/19/19 07:56 01/19/19 07:56 Laboratory Results 01/18/19 13:00 01/17/19 04:47 ICD10 Worksheet Patient Problems: Problems Problem Status Onset Spinal stenosis Acute
[2019-01-19] MEDS: morphINE SR 15 MG TAB PO SCH ×2 (09:33→21:35)
[2019-01-19] MEDS: Mirabegron [Myrbetriq] 50 MG PO SCH (09:34)
[2019-01-19] MEDS: METOPROLOL TARTRATE 50 MG TAB PO SCH ×2 (09:36→21:34)
[2019-01-19] MEDS: GABAPENTIN 100 MG CAP PO SCH (12:21)
[2019-01-19] MEDS: METHOCARBAMOL 750 MG TAB PO PRN (14:15)
--- NOTE | 2019-01-19 16:08 | ASMTCMCOM ---
CM Note CM Note Notes: Spoke to Karine at [facility] - no auth has been received from [employer] as of 1600 on Tuesday. Per Karine, [employer] often times does not approve acute rehab. Met with patient and dtrs to explain we are still waiting on auth. I encouraged the family to be thinking of a back-up plan to rehab. Patient had a terrible experience at [facility] in [place] and will not go back. Dtrs are going to look into [facility] in [place] and do some further research. One dtr flies back to [place] on Tuesday, the other dtr attends school during week and will not be available. CM will follow-up with family this weekend to see if they have decided on a SNF back-up plan - will hold off on referral for now. Updated PA. Plan: [facility] pending insurance auth or SNF. Date Signed: 01/19/2019 04:08 PM Electronically Signed By:Lilia Baker RN
[2019-01-19] MEDS: LISINOPRIL 20 MG TAB PO SCH (21:32)
[2019-01-19] MEDS: valACYclovir 500 MG TAB PO SCH (21:33)
[2019-01-19] MEDS: amLODIPine BESYLATE 5 MG TAB PO SCH (21:34)
[2019-01-20] MEDS: METHOCARBAMOL 750 MG TAB PO PRN (03:45)
[2019-01-20] MEDS: HYDROmorphONE/DILAUDID 2 MG TAB PO PRN ×3 (03:45→18:37)
[2019-01-20] MEDS: ACETAMINOPHEN 500 MG TAB PO SCH ×3 (07:36→22:54)
[2019-01-20] MEDS: ENOXAPARIN 40 MG/0.4 ML SYR SC SCH (08:19)
[2019-01-20] MEDS: GABAPENTIN 300 MG CAP PO SCH ×2 (08:20→22:53)
[2019-01-20] MEDS: SENNOSIDES/DOCUSATE SODIUM TAB PO SCH ×2 (08:20→23:44)
[2019-01-20] MEDS: Mirabegron [Myrbetriq] 50 MG PO SCH (08:21)
[2019-01-20] MEDS: BACLOFEN 20 MG TAB PO SCH ×2 (08:21→22:57)
[2019-01-20] MEDS: PANTOPRAZOLE SODIUM 40 MG TAB PO SCH (08:21)
[2019-01-20] MEDS: morphINE SR 15 MG TAB PO SCH ×2 (08:21→22:56)
[2019-01-20] MEDS: FAMOTIDINE 20 MG TAB PO SCH ×2 (08:21→22:53)
[2019-01-20] MEDS: METOPROLOL TARTRATE 50 MG TAB PO SCH (09:50)
--- NOTE | 2019-01-20 10:32 | NEUSURGPN ---
Date of Surgery: 01/16/19 Post Op Day: 4 Assessment/Plan: Assessment: 68 yo female that is s/p T7/8 and T8/9 interbody cages with extension of fusion T6-T9 POD #4 Plan: -post op films with hardware in good position and stable alignment-reviewed with daughter and patient as well -continue with current pain control, continue current course gabapentin, Flexeril, Robaxin, MSContin and Dilaudid -PT/OT-CPM -wear [place] brace when out of bed-tolerating well -AGGIE removed Tuesday -discussed with daughter and patient -plan for dc to rehab once approved by insurance-pt is ready for dc but waiting on insurance -dispo- hopefully to rehab later today -please contact neurosurgery with any changes in neuro status/exam -call with any questions or concerns -d/w with Dr. Castro Subjective: Awake and alert. NAD. Eating/drinking and voiding. No f/c/n/v/d. Pt with expected T and L spine/back pain. No bush/neck/chest/abd or gu complaints Objective: Awake and alert. AAO x 3 PERRLA/EOMI no droop Facial expression symmetrical MAEX4 Muscle strength full at 5/5 except for left DF and PF at 4/5-stable Incision c/d/i, dressed AGGIE site looks fine Neuro Check Frequency: per routine Urinary Catheter in Place: No - Physician Discussed Patient with : Gloria Neurosurgery Physical Exam - Vitals, I&O, Labs I and O 01/19/19 01/20/19 01/21/19 05:59 05:59 05:59 Intake Total 1350 800 Output Total 425 360 Balance 925 440 Intake: Oral (ml) 350 800 IV Infused (ml) 1000 Ns 1,000 ml @ 3000 mls/hr 1000 IV ONCE ONE Rx#: [id number] Output: Urine (ml) 300 200 Toilet 300 200 AGGIE Drain Output (ml) 125 160 Right Back Johnny Hoff 125 160 Other: Intake Quantity Yes Sufficient Number of Voids Toilet 1 1 Vital Signs Temp Pulse Resp BP Pulse Ox 36.8 C 84 16 101/64 91 L 01/20/19 07:47 01/20/19 07:47 01/20/19 07:47 01/20/19 07:47 01/20/19 07:47 Laboratory Results 01/18/19 13:00 01/17/19 04:47 ICD10 Worksheet Patient Problems: Problems Problem Status Onset Spinal stenosis Acute
[2019-01-20] MEDS: CYCLOBENZAPRINE 10 MG TAB PO SCH ×3 (10:37→22:56)
--- NOTE | 2019-01-20 11:26 | ASMTCMCOM ---
CM Note CM Note Notes: I called [facility] and left a VM to inquire about status of insurance auth. I also called [facility] (which is patient/family's second choice should IPR be denied) to ask about their insurance auth process; Sheila at [facility] also confirms that [employer] [facility] does not do authorizations on the weekend. If we need to refer to [facility], we will wait until hearing from [facility] first. I spoke w patient and her daughter about this and they are quite pleasantly understanding despite their frustration. Case Management will continue to follow. Date Signed: 01/20/2019 11:25 AM Electronically Signed By:Kassandra Clark RN
[2019-01-20] MEDS: GABAPENTIN 100 MG CAP PO SCH (13:50)
--- NOTE | 2019-01-20 16:05 | PDGENHP ---
History and Physical History and Physical: CC: Acute sepsis HISTORY: I am asked by Dr. Castro to evaluate and assist in the care of this patient is developed significant fever in postop setting. 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 She had a prior fusion from T9 to pelvis and at this time has arthrodesis, exploration of prior hardware, decompressive laminectomy, facetectomies with diskectomy and interbody fusions from T7-T9, posterior lateral fusion from T6-10. The patient had been having an uneventful recovery and plans were for transfer to a rehabilitation center later today. The Neurosurgery team was called for fever and the patient indeed has temperature 38.8 degrees, pulse 126, and has developed new hypoxemia. The patient says she feels okay and is apprised here that she has fever. She has noticed that it is slightly more difficult to breathe but does not notice any kind of pain in the chest, sneezing, congestion, cough. She has no nausea and has been eating well. She has no increase in the pain from her surgery nor of her chronic back pain. There is no abdominal discomfort or bowel changes or bladder symptoms. She has no new discomfort in her arms or legs, headache, confusion. She has had no chills or sweats ROS: A comprehensive 10 system review revealed no other significant findings PAST MEDICAL HISTORY: No history of pulmonary or cardiac illnesses HTN Bladder dysfunction Spine stenosis/Kyphosis with previous surgeries with hardware Implantation of a pain stimulator FAMILY MEDICAL HISTORY: No concerning significant medical history and family SOCIAL HISTORY: Is not a heavy drinker Does not smoke MEDICATIONS: The patients list has been reconciled by our clinical pharmacist in the EMR. I have reviewed the list and ordered appropriate medicines. PHYSICAL EXAMINATION: Vital Signs: Temperature 38.8 degrees with all prior temperatures being normal , pulse 126 with previous pulses today in the 80s. Blood pressure is good and respiration rate is normal Oxygen: She has developed mild hypoxemia at this point Examination: General: alert, oriented, good mentation, a bit apprehensive but otherwise relaxed Skin: warm, dry, good color, no rash; good distal perfusion and extremities HEENT: normal Neck: no mass or jvd Resps: relaxed Lungs: clear breath sounds Pulse: Rapid regular but strong Heart: Tachycardic, regular, no murmur Abdomen: soft, nondistended, nontender, +BS, no mass; pump for her pain medicines in abdominal wall is palpable with no tenderness or or other signs of infection Back: No evidence of cellulitis or other problems with her wound Upper Extremities: normal Lower Extremities: no edema, warm No Bleeding or bruising Neurologic: normal speech/language, normal asphalt spreader, no focal weakness IV site: looks normal LABORATORY DATA: She has had some mild to moderate postop normocytic anemia as expected from her surgery otherwise unremarkable CBC on January 17 A chemistry panel January 17 was unremarkable RADIOLOGY STUDIES: A two view chest x-ray has been done today and I reviewed the images. There is no infiltrate. The left hemidiaphragm is slightly high with some slight atelectasis and a minimal effusion on the left side. She has rods and screws in the thoracic spine as well as wires from her pain stimulator ASSESSMENT: * Acute Sepsis new onset now, in post op setting for spine surgery, hardware in place * hypoxemia new onset today * Status post spine surgery with exploration of existing hardware and placement of fusion and bone graft The cause of her fever and sepsis and hypoxia is uncertain. Certain with hypoxia 1 could worry about pneumonia but chest x-ray and lung exam did not show that. There is fever that is higher than I would expect for pulmonary embolism. She has been receiving enoxaparin daily. There is a possibility of surgical infection. There is certainly no evidence right now by examination of a wound infection in the skin or superficial subcutaneous tissues. Possibility of deeper infection could be considered. She does not have bowel or bladder symptoms to suggest anything there but urinalysis is pending. She did receive appropriate prophylactic antibiotics for her surgery. PLANS: * begin sepsis protocol including fluid boluses * blood cultures * chest xray * Given her status of significant fever tachycardia and hardware placement, I would treat for possible staph infection at least until 1st cultures come back negative for staph. I have reviewed the patient's case in detail with Viraj Jean-Baptiste of neurosurgery
[2019-01-20] MEDS ORDERED: NS 1,000 ML IV ONE ×2 (16:37→16:38)
[2019-01-20] MEDS: METOPROLOL TARTRATE 25 MG TAB PO SCH ×2 (16:45→22:59)
[2019-01-20] MEDS: POLYETHYLENE GLYCOL 3350 17 GM PKT PO PRN (18:38)
[2019-01-20 19:13] LABS: PLATELET COUNT 226 10^3/uL (150-400)
[2019-01-20 19:22] LABS: INR 0.96 (0.83-1.16); PROTIME(PATIENT) 12.4 SEC (12.0-15.0)
[2019-01-20] MEDS: valACYclovir 500 MG TAB PO SCH (22:54)
[2019-01-20] MEDS: amLODIPine BESYLATE 5 MG TAB PO SCH (22:58)
[2019-01-20] MEDS: LISINOPRIL 20 MG TAB PO SCH (22:59)
[2019-01-20] MEDS ORDERED: VANCOMYCIN 1 GM in NS 250 ML IV ONE (23:30)
[2019-01-20] MEDS ORDERED: VANCOMYCIN HCL/NORMAL SALINE 250 ML IV ONE (23:30)
[2019-01-21] MEDS: HYDROmorphONE/DILAUDID 2 MG TAB PO PRN ×4 (03:10→20:22)
[2019-01-21] MEDS: ACETAMINOPHEN 500 MG TAB PO SCH ×3 (05:22→21:20)
[2019-01-21] MEDS: METHOCARBAMOL 750 MG TAB PO PRN ×2 (05:24→18:14)
[2019-01-21] MEDS: ENOXAPARIN 40 MG/0.4 ML SYR SC SCH (08:40)
[2019-01-21] MEDS: GABAPENTIN 300 MG CAP PO SCH ×2 (08:40→21:18)
[2019-01-21] MEDS: morphINE SR 15 MG TAB PO SCH ×2 (08:40→21:19)
[2019-01-21] MEDS: FAMOTIDINE 20 MG TAB PO SCH ×2 (08:41→21:21)
[2019-01-21] MEDS: SENNOSIDES/DOCUSATE SODIUM TAB PO SCH ×3 (08:41→21:19)
[2019-01-21] MEDS: PANTOPRAZOLE SODIUM 40 MG TAB PO SCH (08:41)
[2019-01-21] MEDS: METOPROLOL TARTRATE 25 MG TAB PO SCH ×2 (08:53→21:20)
[2019-01-21] MEDS: CYCLOBENZAPRINE 10 MG TAB PO SCH ×3 (09:01→21:21)
[2019-01-21] MEDS: BACLOFEN 20 MG TAB PO SCH ×2 (09:02→21:19)
--- NOTE | 2019-01-21 09:02 | NEUSURGPN ---
Date of Surgery: 01/16/19 Post Op Day: 5 Assessment/Plan: Assessment: 68 yo female that is s/p T7/8 and T8/9 interbody cages with extension of fusion T6-T9 POD #5 Plan: -post op films with hardware in good position and stable alignment-reviewed with daughter and patient as well yesterday -continue with current pain control, continue current course gabapentin, Flexeril, Robaxin, MSContin and Dilaudid -PT/OT-CPM -incision is CDI-changed dressing -pt spiked a temp yesterday and is better now-IM looking at patient as well- appreciate their care and input -wear [place] brace when out of bed-tolerating well -AGGIE removed Tuesday -discussed with patient -plan for dc to rehab once approved by insurance/cleared from IM -dispo- hopefully to rehab later today -please contact neurosurgery with any changes in neuro status/exam -call with any questions or concerns -d/w with Dr. Castro Subjective: Awake and alert. Pt sitting in chair. She is better than yesterday. No bush/ neck/chest/abd or gu complaints. No f/c/n/v/d. Objective: Awake and alert. AAO x 3 PERRLA/EOMI no droop Facial expression symmetrical MAEX4 Muscle strength full at 5/5 except for left DF and PF at 4/5-stable Incision c/d/i, dressed AGGIE site looks fine Neuro Check Frequency: per routine Urinary Catheter in Place: No - Physician Discussed Patient with : Gloria Neurosurgery Physical Exam - Vitals, I&O, Labs I and O 01/20/19 01/21/19 01/22/19 05:59 05:59 05:59 Intake Total 800 3050 Output Total 360 600 Balance 440 2450 Intake: Oral (ml) 800 800 IV Infused (ml) 2250 Ns 1,000 ml @ 3000 mls/hr 1000 IV ONCE ONE Rx#: [id number] Ns 1,000 ml @ 3000 mls/hr 1000 IV ONCE ONE Rx#: [id number] Vancomycin 1 gm In Ns 250 250 ml @ 250 mls/hr IV ONCE ONE Rx#:[id number] Output: Urine (ml) 200 600 Toilet 200 600 AGGIE Drain Output (ml) 160 Right Back Johnny Hoff 160 Other: Intake Quantity Yes Sufficient Number of Voids Toilet 1 1 Vital Signs Temp Pulse Resp BP Pulse Ox 36.9 C 101 H 16 96/68 L 94 01/21/19 07:36 01/21/19 07:36 01/21/19 07:36 01/21/19 07:36 01/21/19 07:36 Laboratory Results 01/20/19 18:49 01/17/19 04:47 ICD10 Worksheet Patient Problems: Problems Problem Status Onset Spinal stenosis Acute
[2019-01-21] MEDS ORDERED: MAGNESIUM CITRATE 300 ML BOTTLE PO PRN (09:28)
[2019-01-21] MEDS: Mirabegron [Myrbetriq] 50 MG PO SCH (10:58)
[2019-01-21] MEDS: GABAPENTIN 100 MG CAP PO SCH (12:46)
[2019-01-21] MEDS: ONDANSETRON DISINTEGRATING 4 MG TAB PO PRN (13:20)
--- NOTE | 2019-01-21 16:07 | HOSPPROG ---
Hospitalist Progress Note Assessment/Plan: Subjective Follow-up on fever and tachycardia. No acute events overnight. Patient is without any new developing localizing complaints. No complaints of productive cough or subjective fevers or chills. No difficulty with urination. She states she had some burning after Bauer catheter was removed but this has gradually improved. No malodor noted to urine either. No abdominal pain or diarrhea. Case reviewed with neurosurgical team as well. Objective Vital signs as detailed below Physical exam General-awake alert conversant no acute distress, brace in place Heart-regular rate and rhythm no murmurs Lungs-Clear to auscultation with normal respiratory effort Abdomen-soft nontender nondistended normal bowel sounds -no Bauer catheter in place Extremities-no significant pitting edema or calf pain with palpation Skin-no concerning skin rashes noted Labs as detailed below Assessment and plan Sepsis-no obvious source of infectious process currently. Empiric antibiotic therapy with vancomycin started. Blood cultures are negative and await final results. Hemodynamically she has been stable as well. Thoracic spine surgery-recommendations per Neurosurgery. Acute blood loss anemia-as expected from surgery. Reassess hemoglobin tomorrow morning. Hypertension-controlled. Patient is currently on lisinopril 30 mg daily, metoprolol 25 mg twice a day, and amlodipine. Constipation-she tells me today that it is been approximately 6 days since her last bowel movement. Magnesium citrate added to her bowel regimen today on a daily as needed use. DVT prophylaxis-Lovenox. Disposition-planning for inpatient rehab once medically clear and clear from neurosurgical standpoint. Objective: Vital Signs Temp Pulse Resp BP Pulse Ox 37.1 C 117 H 18 110/75 96 01/21/19 15:56 01/21/19 15:56 01/21/19 15:56 01/21/19 15:56 01/21/19 15:56 Laboratory Results 01/20/19 18:49 01/21/19 15:03 01/20/19 01/21/19 01/22/19 05:59 05:59 05:59 Intake Total 800 3050 850 Output Total 360 600 Balance 440 2450 850 PT 12.4 SEC (12.0-15.0) 01/20/19 18:49 INR 0.96 (0.83-1.16) 01/20/19 18:49 ICD10 Worksheet Patient Problems: Problems Problem Status Onset Spinal stenosis Acute
[2019-01-21] MEDS: amLODIPine BESYLATE 5 MG TAB PO SCH (21:19)
[2019-01-21] MEDS: valACYclovir 500 MG TAB PO SCH (21:19)
[2019-01-21] MEDS: LISINOPRIL 20 MG TAB PO SCH (21:20)
[2019-01-21] MEDS ORDERED: VANCOMYCIN 1.25 GM in NS 250 ML IV SCH (23:00)
[2019-01-22] MEDS: HYDROmorphONE/DILAUDID 2 MG TAB PO PRN ×3 (05:19→22:11)
[2019-01-22] MEDS: ACETAMINOPHEN 500 MG TAB PO SCH ×3 (05:19→22:13)
--- NOTE | 2019-01-22 07:25 | NEUSURGPN ---
Date of Surgery: 01/16/19 Post Op Day: 6 Assessment/Plan: Assessment: 68 yo female that is s/p T7/8 and T8/9 interbody cages with extension of fusion T6-T9 POD #6 Plan: -post op films with hardware in good position and stable alignment-reviewed with daughter and patient as well -continue with current pain control, continue current course gabapentin, Flexeril, Robaxin, MSContin and Dilaudid -PT/OT-CPM -incision is CDI -pt spiked a temp over weekend and is better now-IM looking at patient as well- appreciate their care and input -wear Jov[place] brace when out of bed-tolerating well-no skin issues -AGGIE removed Tuesday -discussed with patient -plan for dc to rehab once approved by insurance/cleared from IM-ok from NS standpoint -dispo- hopefully to rehab later today -please contact neurosurgery with any changes in neuro status/exam -call with any questions or concerns -d/w with Dr. Castro Subjective: Awake and alert. NAD. Eating/drinking and voiding. No f/c/n/v/d. No bush/neck/ chest/abd or gu complaints. Objective: Awake and alert. AAO x 3 PERRLA/EOMI no droop Facial expression symmetrical LINTON X 4 Muscle strength full at 5/5 except for left DF and PF at 5-/5-stable Incision c/d/i, dressed AGGIE site looks fine Neuro Check Frequency: per routine Urinary Catheter in Place: No - Physician Discussed Patient with Dr.: Castro Neurosurgery Physical Exam - Vitals, I&O, Labs I and O 01/21/19 01/22/19 01/23/19 05:59 05:59 05:59 Intake Total 3050 2150 Output Total 600 1600 Balance 2450 550 Intake: Oral (ml) 800 1900 IV Infused (ml) 2250 250 Ns 1,000 ml @ 3000 mls/hr 1000 IV ONCE ONE Rx#: [id number] Ns 1,000 ml @ 3000 mls/hr 1000 IV ONCE ONE Rx#: [id number] Vancomycin 1 gm In Ns 250 250 ml @ 250 mls/hr IV ONCE ONE Rx#:[id number] Vancomycin 1.25 gm In Ns 250 250 ml @ 166.667 mls/hr IV Q24H [facility] Rx#: [id number] Output: Urine (ml) 600 1600 Toilet 600 1600 Other: Number of Voids Toilet 1 Vital Signs Temp Pulse Resp BP Pulse Ox 37.7 C 78 17 100/66 94 01/21/19 22:51 01/21/19 22:51 01/21/19 22:51 01/21/19 22:51 01/21/19 22:51 Laboratory Results 01/20/19 18:49 01/21/19 15:03 ICD10 Worksheet Patient Problems: Problems Problem Status Onset Spinal stenosis Acute
[2019-01-22] MEDS: POLYETHYLENE GLYCOL 3350 17 GM PKT PO PRN (08:50)
[2019-01-22] MEDS: PANTOPRAZOLE SODIUM 40 MG TAB PO SCH (08:50)
[2019-01-22] MEDS: CYCLOBENZAPRINE 10 MG TAB PO SCH ×3 (08:50→22:12)
[2019-01-22] MEDS: SENNOSIDES/DOCUSATE SODIUM TAB PO SCH ×2 (08:50→22:52)
[2019-01-22] MEDS: GABAPENTIN 300 MG CAP PO SCH ×2 (08:50→22:12)
[2019-01-22] MEDS: FAMOTIDINE 20 MG TAB PO SCH ×2 (08:50→22:12)
[2019-01-22] MEDS: MAGNESIUM HYDROXIDE 30 ML UDCUP PO PRN (08:50)
[2019-01-22] MEDS: morphINE SR 15 MG TAB PO SCH ×2 (08:51→22:13)
[2019-01-22] MEDS: BACLOFEN 20 MG TAB PO SCH ×2 (08:51→22:13)
[2019-01-22] MEDS: Mirabegron [Myrbetriq] 50 MG PO SCH (08:52)
[2019-01-22] MEDS: ENOXAPARIN 40 MG/0.4 ML SYR SC SCH (08:55)
[2019-01-22 10:48] LABS: PLATELET COUNT 276 10^3/uL (150-400)
[2019-01-22] MEDS: LISINOPRIL 20 MG TAB PO SCH (11:31)
[2019-01-22] MEDS: METOPROLOL TARTRATE 25 MG TAB PO SCH (12:51)
[2019-01-22] MEDS: GABAPENTIN 100 MG CAP PO SCH (13:52)
[2019-01-22] MEDS: METOPROLOL TARTRATE 50 MG TAB PO SCH ×2 (14:01→22:12)
--- NOTE | 2019-01-22 16:32 | ASMTCMCOM ---
CM Note CM Note Notes: Updates sent to [facility] inpatient [facility] for insurance auth this morning, Audra at [facility] updated. By 1630 still no insurance auth, pt and dghtr Catrachita updated. D/c plan remains [facility] inpatient rehab when insurance approves Date Signed: 01/22/2019 04:31 PM Electronically Signed By:ANA LAURA Hodges
--- NOTE | 2019-01-22 16:36 | HOSPPROG ---
Hospitalist Progress Note Assessment/Plan: Subjective Follow-up on fever and tachycardia. No acute events overnight. Patient is without any new developing localizing complaints. No recurrent fevers. Last evening however she did have an episode of tachycardia as well with heart rate going into the 120s. We reviewed her home metoprolol dosing with her and she states she typically takes 50 mg twice a day of metoprolol. Here in the hospital we have been giving her 25 mg twice a day. I reviewed with her that I was going to adjust her antihypertensives and increase her metoprolol to 50 mg twice a day to get back to her home dosing but lower her lisinopril from 30-20 mg to mitigate the risk of hypotension. Objective Vital signs as detailed below Physical exam General-awake alert conversant no acute distress, brace in place Heart-regular rate and rhythm no murmurs Lungs-Clear to auscultation with normal respiratory effort Abdomen-soft nontender nondistended normal bowel sounds -no Bauer catheter in place Extremities-no significant pitting edema or calf pain with palpation Skin-no concerning skin rashes noted Labs as detailed below Assessment and plan Sepsis-no obvious source of infectious process currently. Empiric antibiotic therapy with vancomycin started. Blood cultures are negative and await final results. Hemodynamically she has been stable as well. Her procalcitonin level was normal so I think less likely to have a bacterial infection as such I think we should go ahead and stop vancomycin at this point time and monitor her closely. Thoracic spine surgery-recommendations per Neurosurgery. Acute blood loss anemia-as expected from surgery. Stable. Hypertension-controlled. I recommend increasing metoprolol to her home 50 mg twice a day. I am not sure if this could be behind some of her intermittent tachycardia. Continue lisinopril at 20 mg daily and continue current amlodipine as well. Constipation-she tells me today that it is been approximately 6 days since her last bowel movement. Magnesium citrate added to her bowel regimen today on a daily as needed use. DVT prophylaxis-Lovenox. Disposition-planning for inpatient rehab. From a medical standpoint I think she can be discharged from the hospital in proceed to inpatient rehab once we have a spot confirmed. Objective: Vital Signs Temp Pulse Resp BP Pulse Ox 37.2 C 93 18 113/74 96 01/22/19 15:50 01/22/19 15:50 01/22/19 15:50 01/22/19 15:50 01/22/19 15:50 Laboratory Results 01/22/19 10:19 01/21/19 15:03 01/21/19 01/22/19 01/23/19 05:59 05:59 05:59 Intake Total 3050 2150 Output Total 600 1600 1100 Balance 2450 550 -1100 PT 12.4 SEC (12.0-15.0) 01/20/19 18:49 INR 0.96 (0.83-1.16) 01/20/19 18:49 ICD10 Worksheet Patient Problems: Problems Problem Status Onset Spinal stenosis Acute
[2019-01-22] MEDS: METHOCARBAMOL 750 MG TAB PO PRN (16:43)
[2019-01-22] MEDS: valACYclovir 500 MG TAB PO SCH (22:11)
[2019-01-22] MEDS: amLODIPine BESYLATE 5 MG TAB PO SCH (22:13)
[2019-01-23] MEDS: METHOCARBAMOL 750 MG TAB PO PRN ×2 (04:55→12:56)
[2019-01-23] MEDS: ACETAMINOPHEN 500 MG TAB PO SCH ×3 (06:22→23:13)
[2019-01-23] MEDS: morphINE SR 15 MG TAB PO SCH ×2 (08:20→21:37)
[2019-01-23] MEDS: ENOXAPARIN 40 MG/0.4 ML SYR SC SCH (08:20)
[2019-01-23] MEDS: PANTOPRAZOLE SODIUM 40 MG TAB PO SCH (08:20)
[2019-01-23] MEDS: BACLOFEN 20 MG TAB PO SCH ×2 (08:20→21:38)
[2019-01-23] MEDS: Mirabegron [Myrbetriq] 50 MG PO SCH (08:20)
[2019-01-23] MEDS: GABAPENTIN 300 MG CAP PO SCH ×2 (08:20→21:34)
[2019-01-23] MEDS: CYCLOBENZAPRINE 10 MG TAB PO SCH ×3 (08:20→21:37)
[2019-01-23] MEDS: FAMOTIDINE 20 MG TAB PO SCH ×2 (08:20→21:37)
[2019-01-23] MEDS: SENNOSIDES/DOCUSATE SODIUM TAB PO SCH ×2 (08:22→21:37)
--- NOTE | 2019-01-23 10:11 | NEUSURGPN ---
Assessment/Plan: Assessment: 68 yo female that is s/p T7/8 and T8/9 interbody cages with extension of fusion T6-T9 POD #7 Plan: -post op films with hardware in good position and stable alignment -continue with current pain control, continue current course gabapentin, Flexeril, Robaxin, MSContin and Dilaudid -pt spiked a temp over weekend and is better now-IM looking at patient as well- appreciate their care and input -wear [place] brace when out of bed-tolerating well-no skin issues -plan for dc to rehab once approved by insurance/cleared from IM-ok from NS standpoint -dispo- hopefully to rehab later today -please contact neurosurgery with any changes in neuro status/exam -call with any questions or concerns -d/w with Dr. Montalvo Subjective: Pain stable. Denies any new weakness Objective: Awake and alert. AAO x 3 PERRLA/EOMI [place] X 4 Muscle strength full at 5/5 except for left DF and PF at 4/5stable Incision c/d/i - Physician Discussed Patient with : Sel[facility] Neurosurgery Physical Exam - Vitals, I&O, Labs I and O 01/22/19 01/23/19 01/24/19 05:59 05:59 05:59 Intake Total 2150 800 Output Total 1600 1575 Balance 550 -775 Intake: Oral (ml) 1900 800 IV Infused (ml) 250 Vancomycin 1.25 gm In Ns 250 250 ml @ 166.667 mls/hr IV Q24H [facility] Rx#: [id number] Output: Urine (ml) 1600 1575 Toilet 1600 1575 Other: Intake Quantity Yes Sufficient Number of Voids Toilet 1 1 1 Number of Stools Toilet 1 Vital Signs Temp Pulse Resp BP Pulse Ox 37.3 C 95 17 115/69 92 01/23/19 07:52 01/23/19 07:52 01/23/19 07:52 01/23/19 07:52 01/23/19 07:52 Laboratory Results 01/22/19 10:19 01/21/19 15:03 ICD10 Worksheet Patient Problems: Problems Problem Status Onset Spinal stenosis Acute
[2019-01-23] MEDS: LISINOPRIL 20 MG TAB PO SCH (10:24)
[2019-01-23] MEDS: METOPROLOL TARTRATE 50 MG TAB PO SCH ×2 (10:26→21:34)
[2019-01-23] MEDS: GABAPENTIN 100 MG CAP PO SCH (12:56)
[2019-01-23] MEDS: HYDROmorphONE/DILAUDID 2 MG TAB PO PRN ×2 (14:16→21:34)
--- NOTE | 2019-01-23 16:43 | HOSPPROG ---
Hospitalist Progress Note Assessment/Plan: Subjective Follow-up on fever and tachycardia. No acute events overnight. Patient is without any new developing localizing complaints. No recurrent fevers after stopping antibiotic therapy yesterday. Last evening she did not have any tachycardia either. Interestingly over the past couple of nights she had had tachycardia develop in the evening time. I did increase her metoprolol back to 50 mg twice a day up from 25 mg twice a day. She did have a bowel movement over the past 24 hr as well and states her stools have been quite loose. Objective Vital signs as detailed below Physical exam General-awake alert conversant no acute distress, brace in place Heart-regular rate and rhythm no murmurs Lungs-Clear to auscultation with normal respiratory effort Abdomen-soft nontender nondistended normal bowel sounds -no Bauer catheter in place Extremities-no significant pitting edema or calf pain with palpation Skin-no concerning skin rashes noted, she did have a small bruise in the left lateral chest Labs as detailed below Assessment and plan Sepsis-no obvious source of infectious process currently. Empiric antibiotic therapy with vancomycin was started initially but stopped yesterday.. Blood cultures are negative and await final results. Hemodynamically she has been stable as well. Her procalcitonin level was normal so I think less likely to have a bacterial infection. Thoracic spine surgery-recommendations per Neurosurgery. Acute blood loss anemia-as expected from surgery. Stable. Hypertension-controlled with some low normal readings. I recommend we stop her lisinopril 20 mg daily for now but continue with metoprolol 50 mg twice a day and amlodipine at the current dose. Constipation-improved. DVT prophylaxis-Lovenox. Disposition-planning for inpatient rehab. From a medical standpoint I think she can be discharged from the hospital in proceed to inpatient rehab once we have a spot confirmed. Case reviewed with case management today. At this point time since patient does not appear to have developed sepsis, the hospital's service will sign off of the case. I am anticipating she will be discharged soon. If any new medical concerns arise please contact us and we would be happy to rejoin her case. Objective: Vital Signs Temp Pulse Resp BP Pulse Ox 37.6 C 96 18 112/70 92 01/23/19 15:42 01/23/19 15:42 01/23/19 15:42 01/23/19 15:42 01/23/19 15:42 Laboratory Results 01/22/19 10:19 01/21/19 15:03 01/22/19 01/23/19 01/24/19 05:59 05:59 05:59 Intake Total 2150 800 Output Total 1600 1575 Balance 550 -775 PT 12.4 SEC (12.0-15.0) 01/20/19 18:49 INR 0.96 (0.83-1.16) 01/20/19 18:49 ICD10 Worksheet Patient Problems: Problems Problem Status Onset Spinal stenosis Acute
--- NOTE | 2019-01-23 16:44 | ASMTCMCOM ---
CM Note CM Note Notes: Updates sent this morning and throughout day to [facility] Inpatient acute rehab for insurance auth. Audra at [facility] admissions confirms no insurance auth obtained today at 1630. Unfortunately, this is typical of [facility]. Pt is updated. D/c plan of care remain [facility] inpatient acute rehab when insurance approves Date Signed: 01/23/2019 04:43 PM Electronically Signed By:ANA LAURA Hodges
[2019-01-23] MEDS: amLODIPine BESYLATE 5 MG TAB PO SCH (21:36)
[2019-01-23] MEDS: valACYclovir 500 MG TAB PO SCH (21:38)
[2019-01-24] MEDS: HYDROmorphONE/DILAUDID 2 MG TAB PO PRN ×4 (04:10→22:14)
[2019-01-24] MEDS: METHOCARBAMOL 750 MG TAB PO PRN ×2 (04:10→13:16)
[2019-01-24] MEDS: ACETAMINOPHEN 500 MG TAB PO SCH ×3 (05:50→22:14)
--- NOTE | 2019-01-24 07:37 | NEUSURGPN ---
Date of Surgery: 01/16/19 Post Op Day: 8 Assessment/Plan: Assessment: 68 yo female that is s/p T7/8 and T8/9 interbody cages with extension of fusion T6-T9 POD #8 Plan: -post op films with hardware in good position and stable alignment-reviewed with daughter and patient as well last week -continue with current pain control, continue current course gabapentin, Flexeril, Robaxin, MSContin and Dilaudid-rxs on chart -PT/OT-CPM -incision is CDI -pt spiked a temp over weekend and is better now-IM looking at patient as well- appreciate their care and input -wear Jovany brace when out of bed-tolerating well-no skin issues -AGGIE removed last Tuesday -discussed with patient -plan for dc to rehab once approved by insurance/cleared from IM-ok from NS standpoint -dispo- hopefully to rehab later today -please contact neurosurgery with any changes in neuro status/exam -call with any questions or concerns -d/w with Dr. Castro Subjective: Awake and alert. NAD. Eating/drinking and voiding. No f/c/n/v/d. Objective: Awake and alert. AAO x 3 PERRLA/EOMI LINTON X 4 Muscle strength full at 5/5 except for left DF and PF at 4+/5 stable Incision c/d/i Neuro Check Frequency: per routine Urinary Catheter in Place: No - Physician Discussed Patient with Dr.: Castro Neurosurgery Physical Exam - Vitals, I&O, Labs I and O 01/23/19 01/24/19 01/25/19 05:59 05:59 05:59 Intake Total 800 Output Total 1575 Balance -775 Intake: Oral (ml) 800 Output: Urine (ml) 1575 Toilet 1575 Other: Intake Quantity Yes Sufficient Number of Voids Toilet 1 1 1 Number of Stools Toilet 1 Vital Signs Temp Pulse Resp BP Pulse Ox 36.9 C 94 18 122/72 H 92 01/24/19 07:14 01/24/19 07:14 01/24/19 07:14 01/24/19 07:14 01/24/19 07:14 Laboratory Results 01/22/19 10:19 01/21/19 15:03 ICD10 Worksheet Patient Problems: Problems Problem Status Onset Spinal stenosis Acute
[2019-01-24] MEDS: Mirabegron [Myrbetriq] 50 MG PO SCH (08:17)
[2019-01-24] MEDS: morphINE SR 15 MG TAB PO SCH ×2 (08:17→20:03)
[2019-01-24] MEDS: ENOXAPARIN 40 MG/0.4 ML SYR SC SCH (08:18)
[2019-01-24] MEDS: CYCLOBENZAPRINE 10 MG TAB PO SCH ×3 (08:18→22:14)
[2019-01-24] MEDS: BACLOFEN 20 MG TAB PO SCH ×2 (08:18→20:02)
[2019-01-24] MEDS: GABAPENTIN 300 MG CAP PO SCH ×2 (08:18→20:00)
[2019-01-24] MEDS: FAMOTIDINE 20 MG TAB PO SCH ×2 (08:19→20:01)
[2019-01-24] MEDS: METOPROLOL TARTRATE 50 MG TAB PO SCH ×3 (08:19→22:15)
[2019-01-24] MEDS: SENNOSIDES/DOCUSATE SODIUM TAB PO SCH ×2 (08:24→20:02)
[2019-01-24] MEDS: PANTOPRAZOLE SODIUM 40 MG TAB PO SCH (08:24)
--- NOTE | 2019-01-24 11:58 | ASMTCMCOM ---
CM Note CM Note Notes: Still waiting for [place] insurance auth. Updates sent to [facility] inpatient rehab this morning in Allscripts. D/c plan remains [facility] inpatient rehab when insurance approves. Date Signed: 01/24/2019 11:57 AM Electronically Signed By:ANA LAURA Hodges
[2019-01-24] MEDS: GABAPENTIN 100 MG CAP PO SCH (13:16)
[2019-01-24] MEDS: amLODIPine BESYLATE 5 MG TAB PO SCH ×2 (19:58→22:15)
[2019-01-24] MEDS: valACYclovir 500 MG TAB PO SCH (20:03)
[2019-01-25] MEDS: METHOCARBAMOL 750 MG TAB PO PRN (00:03)
[2019-01-25] MEDS: HYDROmorphONE/DILAUDID 2 MG TAB PO PRN ×4 (02:20→19:48)
[2019-01-25] MEDS: ACETAMINOPHEN 500 MG TAB PO SCH ×3 (05:53→22:43)
[2019-01-25] MEDS: PANTOPRAZOLE SODIUM 40 MG TAB PO SCH (08:42)
[2019-01-25] MEDS: SENNOSIDES/DOCUSATE SODIUM TAB PO SCH ×2 (08:42→20:38)
[2019-01-25] MEDS: ENOXAPARIN 40 MG/0.4 ML SYR SC SCH (08:42)
[2019-01-25] MEDS: CYCLOBENZAPRINE 10 MG TAB PO SCH ×3 (08:42→22:06)
[2019-01-25] MEDS: BACLOFEN 20 MG TAB PO SCH ×2 (08:43→20:40)
[2019-01-25] MEDS: GABAPENTIN 300 MG CAP PO SCH ×2 (08:43→20:38)
[2019-01-25] MEDS: FAMOTIDINE 20 MG TAB PO SCH ×2 (08:43→20:38)
[2019-01-25] MEDS: morphINE SR 15 MG TAB PO SCH ×2 (08:43→20:37)
[2019-01-25] MEDS: POLYETHYLENE GLYCOL 3350 17 GM PKT PO PRN (08:49)
[2019-01-25] MEDS: Mirabegron [Myrbetriq] 50 MG PO SCH (08:50)
--- NOTE | 2019-01-25 08:56 | CPEKG ---
Test Reason : OPEN Blood Pressure : / mmHG Vent. Rate : 115 BPM Atrial Rate : 115 BPM P-R Int : 153 ms QRS Dur : 089 ms QT Int : 300 ms P-R-T Axes : 038 013 -23 degrees QTc Int : 415 ms Sinus tachycardia Borderline T abnormalities, inferior leads Confirmed by Greg Winchester ([id number]) on 01/25/2019 8:56:30 AM Referred By: Adonis Castro Confirmed By:Greg Winchester
[2019-01-25] MEDS: METOPROLOL TARTRATE 50 MG TAB PO SCH ×2 (09:00→20:40)
--- NOTE | 2019-01-25 09:43 | NEUSURGPN ---
Assessment/Plan: Assessment: 68 yo female that is s/p T7/8 and T8/9 interbody cages with extension of fusion T6-T9 POD #9 Plan: -post op films with hardware in good position and stable alignment -continue with current pain control, continue current course gabapentin, Flexeril, Robaxin, MSContin and Dilaudid -pt spiked a temp over weekend and is better now-IM looking at patient as well- appreciate their care and input -wear Jovany brace when out of bed-tolerating well-no skin issues -dispo- hopefully to rehab later today -please contact neurosurgery with any changes in neuro status/exam -call with any questions or concerns -d/w with Dr. Montalvo Subjective: Pain stable, denies any new weakness Objective: Awake and alert. AAO x 3 LINTON X 4 Muscle strength full at 5/5 except for left DF and PF at 4+/5 stable Incision c/d/i - Physician Discussed Patient with Dr.: Montalvo Neurosurgery Physical Exam - Vitals, I&O, Labs I and O 01/24/19 01/25/19 01/26/19 05:59 05:59 05:59 Output Total 200 Balance -200 Output: Urine (ml) 200 Toilet 200 Other: Intake Quantity Yes Sufficient Number of Voids Toilet 1 1 Vital Signs Temp Pulse Resp BP Pulse Ox 37.0 C 94 18 103/67 93 01/25/19 07:22 01/25/19 07:22 01/25/19 07:22 01/25/19 07:22 01/25/19 07:22 Laboratory Results 01/22/19 10:19 01/21/19 15:03 ICD10 Worksheet Patient Problems: Problems Problem Status Onset Spinal stenosis Acute
[2019-01-25] MEDS: ONDANSETRON DISINTEGRATING 4 MG TAB PO PRN (11:13)
[2019-01-25] MEDS: GABAPENTIN 100 MG CAP PO SCH (15:49)
--- NOTE | 2019-01-25 16:38 | ASMTCMCOM ---
CM Note CM Note Notes: Pt has been medically stable for d/c and [place] auth for [facility] inpatient acute is still pending. Updates were sent to [facility] today in Allscripts and [facility] in admission confirms they are closely following this authorization. This CM received a call from an [employer] worker named Marquita who reports they are still working on the escalation. Pt updated. D/c plan remains [facility] Inpatient Rehab when insurance approves Date Signed: 01/25/2019 04:38 PM Electronically Signed By:ANA LAURA Hodges
[2019-01-25] MEDS: valACYclovir 500 MG TAB PO SCH (20:38)
[2019-01-25] MEDS: amLODIPine BESYLATE 5 MG TAB PO SCH (20:38)
[2019-01-26] MEDS: HYDROmorphONE/DILAUDID 2 MG TAB PO PRN ×5 (00:21→20:40)
[2019-01-26] MEDS: ACETAMINOPHEN 500 MG TAB PO SCH ×3 (05:44→23:00)
[2019-01-26] MEDS: GABAPENTIN 300 MG CAP PO SCH ×2 (09:35→20:43)
[2019-01-26] MEDS: morphINE SR 15 MG TAB PO SCH ×2 (09:35→20:40)
[2019-01-26] MEDS: FAMOTIDINE 20 MG TAB PO SCH ×2 (09:35→20:43)
[2019-01-26] MEDS: PANTOPRAZOLE SODIUM 40 MG TAB PO SCH (09:35)
[2019-01-26] MEDS: SENNOSIDES/DOCUSATE SODIUM TAB PO SCH ×2 (09:35→20:41)
[2019-01-26] MEDS: CYCLOBENZAPRINE 10 MG TAB PO SCH ×3 (09:35→23:00)
[2019-01-26] MEDS: ENOXAPARIN 40 MG/0.4 ML SYR SC SCH (09:36)
[2019-01-26] MEDS: BACLOFEN 20 MG TAB PO SCH ×2 (09:36→20:40)
[2019-01-26] MEDS: METHOCARBAMOL 750 MG TAB PO PRN (11:05)
[2019-01-26] MEDS: METOPROLOL TARTRATE 50 MG TAB PO SCH ×2 (11:12→20:42)
[2019-01-26] MEDS: Mirabegron [Myrbetriq] 50 MG PO SCH (11:23)
--- NOTE | 2019-01-26 11:44 | NEUSURGPN ---
Assessment/Plan: Assessment: 68 yo female that is s/p T7/8 and T8/9 interbody cages with extension of fusion T6-T9 POD #10 History of opioid dependence and is has an indwelling pain pump and spinal cord stimulator no changes today, just awaiting insurance approval for rehab Plan: -post op films with hardware in good position and stable alignment -continue with current pain control, continue current course gabapentin, Flexeril, Robaxin, MSContin and Dilaudid -pt spiked a temp over weekend and is better now-IM looking at patient as well- appreciate their care and input -wear Jovany brace when out of bed-tolerating well-no skin issues -dispo- hopefully to rehab later today -please contact neurosurgery with any changes in neuro status/exam -call with any questions or concerns -d/w with Dr. Montalvo Subjective: Pain tolerable with current regiment Objective: Awake and alert. AAO x 3 LINTON X 4 Muscle strength full at 5/5 except for left HF/DF and PF at 4/5 stable Incision c/d/i - Physician Discussed Patient with Dr.: Montalvo Neurosurgery Physical Exam - Vitals, I&O, Labs I and O 01/25/19 01/26/19 01/27/19 05:59 05:59 05:59 Intake Total 690 350 Output Total 200 Balance -200 690 350 Intake: Oral (ml) 690 350 Output: Urine (ml) 200 Toilet 200 Other: Intake Quantity Yes Sufficient Number of Voids Toilet 1 1 Number of Stools Incontinence 1 Toilet 1 Microbiology 01/20/19 18:04 Blood Culture - Final Blood 01/20/19 18:49 Blood Culture - Final Blood Vital Signs Temp Pulse Resp BP Pulse Ox 36.8 C 107 H 16 98/77 L 91 L 01/26/19 08:00 01/26/19 11:12 01/26/19 08:00 01/26/19 11:12 01/26/19 08:00 Laboratory Results 01/22/19 10:19 01/21/19 15:03 ICD10 Worksheet Patient Problems: Problems Problem Status Onset Spinal stenosis Acute
[2019-01-26] MEDS: ONDANSETRON DISINTEGRATING 4 MG TAB PO PRN (12:36)
[2019-01-26] MEDS: GABAPENTIN 100 MG CAP PO SCH (13:18)
--- NOTE | 2019-01-26 15:37 | ASMTCMCOM ---
CM Note CM Note Notes: Received call from [facility] - still no insurance auth from [place]. Sent clinical updates via [employer]. Informed neurosurgery was well. CM will continue to follow. D/C plan: [facility] after insurance authorization Date Signed: 01/26/2019 03:37 PM Electronically Signed By:ANA LAURA Nixon
[2019-01-26] MEDS: valACYclovir 500 MG TAB PO SCH (20:39)
[2019-01-26] MEDS: amLODIPine BESYLATE 5 MG TAB PO SCH (20:41)
[2019-01-26] MEDS ORDERED: ZOLPIDEM TARTRATE 5 MG TAB PO ONE (23:56)
[2019-01-27] MEDS: ACETAMINOPHEN 500 MG TAB PO SCH ×3 (06:51→21:21)
[2019-01-27] MEDS: FAMOTIDINE 20 MG TAB PO SCH ×2 (09:27→21:22)
[2019-01-27] MEDS: BACLOFEN 20 MG TAB PO SCH ×2 (09:27→21:22)
[2019-01-27] MEDS: PANTOPRAZOLE SODIUM 40 MG TAB PO SCH (09:27)
[2019-01-27] MEDS: morphINE SR 15 MG TAB PO SCH ×2 (09:27→21:24)
[2019-01-27] MEDS: SENNOSIDES/DOCUSATE SODIUM TAB PO SCH ×2 (09:28→21:21)
[2019-01-27] MEDS: ENOXAPARIN 40 MG/0.4 ML SYR SC SCH (09:28)
[2019-01-27] MEDS: CYCLOBENZAPRINE 10 MG TAB PO SCH ×3 (09:28→21:23)
[2019-01-27] MEDS: METOPROLOL TARTRATE 50 MG TAB PO SCH ×2 (09:29→21:23)
[2019-01-27] MEDS: GABAPENTIN 300 MG CAP PO SCH ×2 (09:37→21:22)
[2019-01-27] MEDS: HYDROmorphONE/DILAUDID 2 MG TAB PO PRN ×3 (09:37→15:59)
[2019-01-27] MEDS: Mirabegron [Myrbetriq] 50 MG PO SCH (09:43)
--- NOTE | 2019-01-27 10:55 | NEUSURGPN ---
Assessment/Plan: Assessment/Plan: Assessment: 68 yo female that is s/p T7/8 and T8/9 interbody cages with extension of fusion T6-T9 POD #11 History of opioid dependence and is has an indwelling pain pump and spinal cord stimulator no changes today, just awaiting insurance approval for rehab- was denied acute rehab so case management looking at 3 more options that are a lower level of rehab than [facility] Plan: -post op films with hardware in good position and stable alignment -continue with current pain control, continue current course gabapentin, Flexeril, Robaxin, MSContin and Dilaudid -IM looking at patient as well-appreciate their care and input -wear [place] when up and out of bed -Dispo- pending clearance. Spoke to Case management this morning. [facility] denied and looking at other options that are a lower level of rehab now. -please contact neurosurgery with any changes in neuro status/exam -call with any questions or concerns -d/w with Dr. Montalvo Subjective: Pain tolerable with current regimen. Has some abdominal pain this morning that she thinks is from positioning. No distention of abdomen and has had BM this morning without issue. Objective: Awake and alert. AAO x 3 LINTON X 4 Abdomen soft, somewhat TTP, non-distended Muscle strength full at 5/5 except for left HF/DF and PF at 4/5 stable Incision c/d/i - Physician Discussed Patient with Dr.: Montalvo Neurosurgery Physical Exam - Vitals, I&O, Labs I and O 01/26/19 01/27/19 01/28/19 05:59 05:59 05:59 Intake Total 690 1350 Balance 690 1350 Intake: Oral (ml) 690 1350 Other: Intake Quantity Yes Sufficient Number of Voids Incontinence 2 Toilet 1 1 Number of Stools Incontinence 1 1 Toilet 1 Number of Emesis 1 Occurrences Microbiology 01/20/19 18:04 Blood Culture - Final Blood 01/20/19 18:49 Blood Culture - Final Blood Vital Signs Temp Pulse Resp BP Pulse Ox 36.8 C 100 17 89/70 L 94 01/27/19 07:51 01/27/19 09:29 01/27/19 07:51 01/27/19 09:29 01/27/19 07:51 Laboratory Results 01/22/19 10:01/21/19 15:03 ICD10 Worksheet Patient Problems: Problems Problem Status Onset Spinal stenosis Acute
--- NOTE | 2019-01-27 11:00 | ASMTCMCOM ---
CM Note CM Note Notes: Due to denial from insurance for In-Patient Rehab pt was referred to SNFs; she was referred to [facility] [place], [facility] and [facility] and [facility]. They have not responded as of yet; CM will follow for acceptance. D/C Plan: Anticipate SNF Date Signed: 01/27/2019 10:59 AM Electronically Signed By:Bette Killian
[2019-01-27] MEDS: METHOCARBAMOL 750 MG TAB PO PRN (11:17)
[2019-01-27] MEDS: GABAPENTIN 100 MG CAP PO SCH (13:18)
[2019-01-27] MEDS: valACYclovir 500 MG TAB PO SCH (21:21)
[2019-01-27] MEDS: amLODIPine BESYLATE 5 MG TAB PO SCH (21:24)
[2019-01-28] MEDS: METHOCARBAMOL 750 MG TAB PO PRN (02:08)
[2019-01-28] MEDS: HYDROmorphONE/DILAUDID 2 MG TAB PO PRN ×3 (02:08→13:32)
[2019-01-28] MEDS: ACETAMINOPHEN 500 MG TAB PO SCH ×3 (05:28→21:00)
[2019-01-28] MEDS: FAMOTIDINE 20 MG TAB PO SCH ×2 (08:48→21:00)
[2019-01-28] MEDS: Mirabegron [Myrbetriq] 50 MG PO SCH (08:48)
[2019-01-28] MEDS: morphINE SR 15 MG TAB PO SCH ×2 (08:49→20:58)
[2019-01-28] MEDS: PANTOPRAZOLE SODIUM 40 MG TAB PO SCH (08:49)
[2019-01-28] MEDS: BACLOFEN 20 MG TAB PO SCH ×2 (08:49→20:59)
[2019-01-28] MEDS: CYCLOBENZAPRINE 10 MG TAB PO SCH ×3 (08:49→21:00)
[2019-01-28] MEDS: METOPROLOL TARTRATE 50 MG TAB PO SCH ×2 (08:49→20:59)
[2019-01-28] MEDS: SENNOSIDES/DOCUSATE SODIUM TAB PO SCH ×2 (08:50→20:59)
[2019-01-28] MEDS: GABAPENTIN 300 MG CAP PO SCH ×2 (08:50→20:59)
[2019-01-28] MEDS: ENOXAPARIN 40 MG/0.4 ML SYR SC SCH (08:51)
--- NOTE | 2019-01-28 11:55 | NEUSURGPN ---
Assessment/Plan: Assessment/Plan: Assessment: 68 yo female that is s/p T7/8 and T8/9 interbody cages with extension of fusion T6-T9 POD #12 History of opioid dependence and is has an indwelling pain pump and spinal cord stimulator no changes today, just awaiting insurance approval for rehab- was denied acute rehab so case management looking at 3 more options that are a lower level of rehab than [facility]. Awaiting approval from these facilities but likely nothing that will happen over the weekend for this. Plan: -post op films with hardware in good position and stable alignment -Spoke to RN about having aid or somebody to come walk with patient more today. Only getting about 10 minutes of therapy a day and would like to walk more with someone. RN to talk to try and find someone for this today. -continue with current pain control, continue current course gabapentin, Flexeril, Robaxin, MSContin and Dilaudid -IM looking at patient as well-appreciate their care and input -wear Jovany when up and out of bed -Dispo- Pending acceptance to facility, acute rehab denied, likely will go to SNF -please contact neurosurgery with any changes in neuro status/exam -call with any questions or concerns -d/w with Dr. Montalvo Subjective: Pain tolerable with current regimen. Would like to walk around more with someone today if possible. Frustrated overall with dispo options and planning and that she is still here. No change to burning in legs, has been there since preop. Objective: Awake and alert. AAO x 3 LINTON X 4 Abdomen soft, somewhat TTP, non-distended Muscle strength full at 5/5 except for left HF/DF and PF at 4/5 stable Incision c/d/i - Physician Discussed Patient with Dr.: Montalvo Neurosurgery Physical Exam - Vitals, I&O, Labs I and O 01/27/19 01/28/19 01/29/19 05:59 05:59 05:59 Intake Total 1350 700 Balance 1350 700 Intake: Oral (ml) 1350 700 Other: Intake Quantity Yes Yes Sufficient Number of Voids Incontinence 2 Toilet 1 1 Number of Stools Incontinence 1 Toilet 1 Number of Emesis 1 Occurrences Vital Signs Temp Pulse Resp BP Pulse Ox 36.6 C 92 18 113/69 96 01/28/19 08:00 01/28/19 08:00 01/28/19 08:00 01/28/19 08:00 01/28/19 08:00 Laboratory Results 01/22/19 10:19 01/21/19 15:03 ICD10 Worksheet Patient Problems: Problems Problem Status Onset Spinal stenosis Acute
[2019-01-28] MEDS: GABAPENTIN 100 MG CAP PO SCH (13:32)
--- NOTE | 2019-01-28 16:15 | ASMTCMCOM ---
CM Note CM Note Notes: CM follow up on SNF referrals after denial from [employer] coverage for InPatient rehab. -[facility] Yes, willing to accept patient Comments: We need a level 3 authorization from [employer]. -[facility] -No, unable to accept patient Reason: Care Needs Exceed Current Capacity -[facility] - pending response from SNF. CM spoke with patient, shared she has the option to discharge to [facility] [place] however they are again pending authorization from [employer]. Patient shares frustration with the situation and wonders if it will take the insurance company a long time to respond with authorization for the SNF. She also wonders what the insurance company feels is beneficial about her staying in the hospital while they process the authorization only to end up denying coverage. The patient was very eager to go to rehab as her goal is to rehab and improve which was her past experience when undergoing the rigorous process at [facility]. The patient is interested in appealing the denial with [employer]. CM sent a response to [facility] asking for updates, CM received a phone response from [place] [facility] liaison [phone] asking for updated notes to be sent via [employer] [facility] CM to follow. D/Plan: continued pending insurance auth for rehab, SNF? CM to send updated notes Date Signed: 01/28/2019 04:15 PM Electronically Signed By:Henrietta Beckman
[2019-01-28] MEDS: amLODIPine BESYLATE 5 MG TAB PO SCH (20:59)
[2019-01-28] MEDS: valACYclovir 500 MG TAB PO SCH (21:00)
[2019-01-29] MEDS: HYDROmorphONE/DILAUDID 2 MG TAB PO PRN ×3 (03:35→18:41)
[2019-01-29] MEDS: ACETAMINOPHEN 500 MG TAB PO SCH ×3 (07:28→20:47)
--- NOTE | 2019-01-29 07:51 | NEUSURGPN ---
Date of Surgery: 01/16/19 Post Op Day: 13 Assessment/Plan: Assessment: 68 yo female that is s/p T7/8 and T8/9 interbody cages with extension of fusion T6-T9 POD #13 History of opioid dependence and is has an indwelling pain pump and spinal cord stimulator insurance approval for rehab was denied acute rehab so case management looking at 3 more options that are a lower level of rehab than [facility]. Plan: -post op films with hardware in good position and stable alignment -Encourage ambulation in halls 2-3 times per day -continue with current pain control, continue current course gabapentin, Flexeril, Robaxin, MSContin and Dilaudid -IM looking at patient as well-appreciate their care and input -wear [place] when up and out of bed -Dispo- Pending acceptance to facility, acute rehab denied, likely will go to SNF-hopefully today. Case Management working on this. -please contact neurosurgery with any changes in neuro status/exam -call with any questions or concerns -patient seen by Dr Castro as well this morning Subjective: skin sensitivity in abdominal region Objective: Awake and alert LINTON X 4 Muscle strength full at 5/5 except for left HF/DF and PF at 4/5 stable Incision CDI Neuro Check Frequency: per routine Urinary Catheter in Place: No - Physician Patient Seen by Dr.: Castro Neurosurgery Physical Exam - Vitals, I&O, Labs I and O 01/28/19 01/29/19 01/30/19 05:59 05:59 05:59 Intake Total 700 700 Balance 700 700 Intake: Oral (ml) 700 700 Other: Intake Quantity Yes Yes Sufficient Number of Voids Toilet 1 2 Number of Stools Incontinence 1 Toilet 1 Vital Signs Temp Pulse Resp BP Pulse Ox 36.8 C 86 16 104/65 95 01/29/19 07:33 01/29/19 07:33 01/29/19 07:33 01/29/19 07:33 01/29/19 07:33 Laboratory Results 01/22/19 10:19 01/21/19 15:03 ICD10 Worksheet Patient Problems: Problems Problem Status Onset Spinal stenosis Acute
[2019-01-29] MEDS: BACLOFEN 20 MG TAB PO SCH ×2 (08:36→20:49)
[2019-01-29] MEDS: CYCLOBENZAPRINE 10 MG TAB PO SCH ×3 (08:36→20:49)
[2019-01-29] MEDS: GABAPENTIN 300 MG CAP PO SCH ×2 (08:37→20:50)
[2019-01-29] MEDS: FAMOTIDINE 20 MG TAB PO SCH ×2 (08:37→20:49)
[2019-01-29] MEDS: ENOXAPARIN 40 MG/0.4 ML SYR SC SCH (08:37)
[2019-01-29] MEDS: morphINE SR 15 MG TAB PO SCH ×2 (08:38→20:52)
[2019-01-29] MEDS: Mirabegron [Myrbetriq] 50 MG PO SCH (08:38)
[2019-01-29] MEDS: PANTOPRAZOLE SODIUM 40 MG TAB PO SCH (08:39)
[2019-01-29] MEDS: SENNOSIDES/DOCUSATE SODIUM TAB PO SCH ×2 (08:39→20:52)
[2019-01-29] MEDS: METOPROLOL TARTRATE 50 MG TAB PO SCH ×2 (11:37→20:51)
--- NOTE | 2019-01-29 14:04 | ASMTCMCOM ---
CM Note CM Note Notes: Pt is definitely wanting to d/c to SNF, [facility] Baptiste is working on insurance auth. Updates sent to [facility] in Allscripts. Voicemail left for [facility] leaving this CM contact information. CM Director Marilin has spoken with [facility] and they have submitted for insurance auth. Pt is anxious today, reports to this CM she does not feel safe going home where she will be alone for 12 hours and she has heard from some on her care team she is clear for home. Pt reports she has transportation to [facility] if they do not provide. OT rec home/HHC/SNF, PT rec SNF D/c plan of care: [facility] SN[facility] when insurance approves. Date Signed: 01/29/2019 01:54 PM Electronically Signed By:ANA LAURA Hodges
[2019-01-29] MEDS: GABAPENTIN 100 MG CAP PO SCH (15:29)
[2019-01-29] MEDS: amLODIPine BESYLATE 5 MG TAB PO SCH (20:48)
[2019-01-29] MEDS: valACYclovir 500 MG TAB PO SCH (20:55)
[2019-01-30] MEDS: HYDROmorphONE/DILAUDID 2 MG TAB PO PRN ×2 (04:16→14:05)
[2019-01-30] MEDS: ACETAMINOPHEN 500 MG TAB PO SCH ×2 (06:24→14:03)
--- NOTE | 2019-01-30 07:50 | NEUSURGPN ---
Date of Surgery: 01/16/19 Post Op Day: 14 Assessment/Plan: Assessment: 68 yo female that is s/p T7/8 and T8/9 interbody cages with extension of fusion T6-T9 POD #14 History of opioid dependence and is has an indwelling pain pump and spinal cord stimulator Plan: -post op films with hardware in good position and stable alignment -Encourage ambulation in halls 2-3 times per day -continue with current pain control, continue current course gabapentin, Flexeril, Robaxin, MSContin and Dilaudid -IM looking at patient as well-appreciate their care and input -wear [place] when up and out of bed -Dispo- Pending acceptance to facility, acute rehab denied, likely will go to SNF-hopefully today. Case Management working on this. Patient does not feel safe going home without 24 hr support available. -please contact neurosurgery with any changes in neuro status/exam -call with any questions or concerns -discussed patient with Dr Castro Subjective: skin sensitivity on abdomen, no new events Objective: Awake and alert LINTON X 4 Muscle strength full at 5/5 except for left HF/DF and PF at 4/5 stable Incision CDI Neuro Check Frequency: per routine Urinary Catheter in Place: No - Physician Discussed Patient with Dr.: Castro Neurosurgery Physical Exam - Vitals, I&O, Labs I and O 01/29/19 01/30/19 01/31/19 05:59 05:59 05:59 Intake Total 700 700 Balance 700 700 Intake: Oral (ml) 700 700 Other: Intake Quantity Yes Sufficient Number of Voids Incontinence 1 Toilet 2 2 Vital Signs Temp Pulse Resp BP Pulse Ox 36.8 C 84 18 105/69 98 01/30/19 07:42 01/30/19 07:42 01/30/19 07:42 01/30/19 07:42 01/30/19 07:42 Laboratory Results 01/22/19 10:19 01/21/19 15:03 ICD10 Worksheet Patient Problems: Problems Problem Status Onset Spinal stenosis Acute
[2019-01-30] MEDS: BACLOFEN 20 MG TAB PO SCH (09:42)
[2019-01-30] MEDS: morphINE SR 15 MG TAB PO SCH (09:42)
[2019-01-30] MEDS: CYCLOBENZAPRINE 10 MG TAB PO SCH (09:42)
[2019-01-30] MEDS: FAMOTIDINE 20 MG TAB PO SCH (11:37)
[2019-01-30] MEDS: SENNOSIDES/DOCUSATE SODIUM TAB PO SCH (11:40)
[2019-01-30] MEDS: METOPROLOL TARTRATE 50 MG TAB PO SCH (11:40)
[2019-01-30] MEDS: GABAPENTIN 300 MG CAP PO SCH (11:41)
[2019-01-30] MEDS: Mirabegron [Myrbetriq] 50 MG PO SCH (11:41)
[2019-01-30] MEDS: PANTOPRAZOLE SODIUM 40 MG TAB PO SCH (11:41)
[2019-01-30 11:42] VITALS: BP 104/78
[2019-01-30] MEDS: ENOXAPARIN 40 MG/0.4 ML SYR SC SCH (11:42)
--- NOTE | 2019-01-30 11:47 | PDIAF ---
- Diagnosis Diagnosis: S/P thoracic fusion Code Status: Full Code - Medication Management Discharge Medications: electronically signed and located in the Home Medication List. PICC Care - Routine: N/A - Orders Services needed: Registered Nurse, Certified Datastage Developer, Physical Therapy, Occupational Therapy Diet Recommendation: no restrictions on diet Diet Texture: Regular Texture Diet Additional Instructions: -take medications as directed -call with any questions or concerns -wear brace as directed -see Dr Raymundo team in 4 weeks -please call your PCP to see if aspirin is needed - Follow Up Care Current Providers and Referrals: Doctor Pitt,On Staff, [Primary Care Provider] - Adonis Castro MD [Medical Doctor] - (follow up in 4 weeks)
--- NOTE | 2019-01-30 13:52 | ASMTLACE ---
LACE Length of stay for Answers: 14 days or more current admission Acuity / Level of Answers: Yes Care: Did the patient have an inpatient admission? Comorbidities - select Answers: Opioid dependence all that apply / Chronic pain Other Notes: HTN # of Emergency department Answers: 0 visits in the last 6 months Social determinants Answers: Mental health diagnosis (anxiety, depression, pers onality disorders, etc.) Score: 18 Date Signed: 01/30/2019 01:49 PM Electronically Signed By:ANA LAURA Hodges
--- NOTE | 2019-01-30 13:55 | ASMTCMCOM ---
CM Note CM Note Notes: Today [facility] approved SNF. ESTER Easley completed orders and obtained MD signature on them, order with MD signature faxed [phone] and rest sent in Allscripts. Hard scripts to be sent with pt. [facility]ia transport scheduled for 01:30, to be billed to [facility] with Director Charlotte Gaston approval. Date Signed: 01/30/2019 01:52 PM Electronically Signed By:ANA LAURA Hodges
[2019-01-30] MEDS: METHOCARBAMOL 750 MG TAB PO PRN (14:02)
[2019-01-30] MEDS: GABAPENTIN 100 MG CAP PO SCH (14:02)
--- NOTE | 2019-01-30 15:05 | ASDISCHSUM ---
Discharge Information Plan Status:Inpatient Rehab Medically Cleared to Leave: Discharge Date:01/30/2019 02:51 PM D/C Disposition: ADT D/C Disposition:[facility] Facility Projected Discharge Date:01/18/2019 11:00 AM Transportation at D/C: Discharge Delay Reason: Follow-Up Date:01/18/2019 11:00 AM Discharge Slot: Final Diagnosis: Placement Information Referral Type:Rehabilitation Hospital Referral ID:[id number] Provider Name: Address 1: Phone Number: Address 2: Fax Number: City: Selection Factors: State: Referral Type:*Fpc/SNF Referral ID:[id number] Provider Name:[facility] Address 1:[address] [place] [address] Address 2: City:[place] Selection Factors: State:[place] Patient Contact Information Contact Name:ELIOCOREYRUPESH Relationship:Daughter Address: Work Phone: City: Alternate Phone: State/Zip Code: Email: Financial Information Financial Class:Medicare Advantage Plans Primary Plan Desc:[employer] MEDICARE ADV Primary Plan Number:[id number] Secondary Plan Desc: Secondary Plan Number: Assessment Information LACE LACE Length of stay for Answers: 14 days or more current admission Acuity / Level of Answers: Yes Care: Did the patient have an inpatient admission? Comorbidities - select Answers: Opioid dependence all that apply / Chronic pain Other Notes: HTN # of Emergency department Answers: 0 visits in the last 6 months Social determinants Answers: Mental health diagnosis (anxiety, depression, pers onality disorders, etc.) Score: 18 Date Signed: 01/30/2019 01:49 PM Electronically Signed By:ANA LAURA Hodges [facility] JANE Progress Note CM Note CM Note Notes: Pt had planned surgery for stenosis. PT/OT rec inpatient rehab. Pt requests referral to [facility] where she has been before. Referral sent and insurance auth will be needed. Pt dghtr is bedside for support. CM to follow. D/c plan: [facility] inpatient acute Date Signed: 01/17/2019 04:16 PM Electronically Signed By:ANA LAURA Hodges [facility] JANE Progress Note CM Note CM Note Notes: Pt clinically accepted at [facility] inpatient rehab, spoke with Karine Stevens. [facility] has sent for insurance authorization. Karine will visit pt this afternoon. D/c plan: [facility] inpatient rehab Date Signed: 01/18/2019 03:28 PM Electronically Signed By:ANA LAURA Hodges [facility] JANE Progress Note CM Note CM Note Notes: [facility] to [facility] at [facility] - no auth has been received from [employer] as of 1600 on Tuesday. Per [employer] [place] often times does not approve acute rehab. Met with patient and dtrs to explain we are still waiting on auth. I encouraged the family to be thinking of a back-up plan to rehab. Patient had a terrible experience at [facility] in [place] and will not go back. Dtrs are going to look into [facility] in [place] and do some further research. One dtr flies back to [place] on Tuesday, the other dtr attends school during week and will not be available. CM will follow-up with family this weekend to see if they have decided on a SNF back-up plan - will hold off on referral for now. Updated PA. Plan: [facility] Acute Rehab pending insurance auth or SNF. Date Signed: 01/19/2019 04:08 PM Electronically Signed By:Lilia Baker RN [facility] CM Progress Note CM Note CM Note Notes: I called [facility] and left a VM to inquire about status of insurance auth. I also called [facility] (which is patient/family's second choice should IPR be denied) to ask about their insurance auth process; Sheila at [facility] also confirms that [employer] SOUZA does not do authorizations on the weekend. If we need to refer to [facility], we will wait until hearing from [facility] first. I spoke w patient and her daughter about this and they are quite pleasantly understanding despite their frustration. Case Management will continue to follow. Date Signed: 01/20/2019 11:25 AM Electronically Signed By:Kassandra Clark RN [facility] CM Progress Note CM Note CM Note Notes: Updates sent to [facility] inpatient rehab for insurance auth this morning, Audra at [facility] updated. By 1630 still no insurance auth, pt and suki Domínguez updated. D/c plan remains [facility] inpatient rehab when insurance approves Date Signed: 01/22/2019 04:31 PM Electronically Signed By:ANA LAURA Hodges BC CM Progress Note CM Note CM Note Notes: Updates sent this morning and throughout day to [facility] Inpatient acute rehab for insurance auth. Audra at [facility] confirms no insurance auth obtained today at 1630. Unfortunately, this is typical of [facility]. Pt is updated. D/c plan of care remain [facility] acute rehab when insurance approves Date Signed: 01/23/2019 04:43 PM Electronically Signed By:ANA LAURA Hodges [facility] CM Progress Note CM Note CM Note Notes: Still waiting for [employer] insurance auth. Updates sent to [facility] this morning in [employer]. D/c plan remains [facility] inpatient rehab when insurance approves. Date Signed: 01/24/2019 11:57 AM Electronically Signed By:ANA LAURA Hodges BC CM Progress Note CM Note CM Note Notes: Pt has been medically stable for d/c and [employer] auth for [facility] inpatient acute is still pending. Updates were sent to Yenifer GILL today in Allscripts and Court in admission confirms they are closely following this authorization. This CM received a call from an [employer] worker named Marquita who reports they are still working on the escalation. Pt updated. D/c plan remains [facility] Inpatient Rehab when insurance approves Date Signed: 01/25/2019 04:38 PM Electronically Signed By:ANA LAURA Hodges [facility] CM Progress Note CM Note CM Note Notes: Received call from [facility] - still no insurance auth from [employer]. Sent clinical updates via [employer]. Informed neurosurgery was well. CM will continue to follow. D/C plan: [facility] after insurance authorization Date Signed: 01/26/2019 03:37 PM Electronically Signed By:ANA LAURA Nixon [facility] CM Progress Note CM Note CM Note Notes: Due to denial from insurance for In-Patient Rehab pt was referred to SNFs; she was referred to [facility], [facility] and [facility]. They have not responded as of yet; CM will follow for acceptance. D/C Plan: Anticipate SNF Date Signed: 01/27/2019 10:59 AM Electronically Signed By:Bette Killian [facility] Progress Note CM Note CM Note Notes: CM follow up on SNF referrals after denial from [employer] coverage for InPatient rehab. -[facility] Yes, willing to accept patient Comments: We need a level 3 authorization from [employer]. -[email or web address] -No, unable to accept patient Reason: Care Needs Exceed Current Capacity -[facility] - pending response from SNF. CM spoke with patient, shared she has the option to discharge to [facility] however they are again pending authorization from [employer]. Patient shares frustration with the situation and wonders if it will take the insurance company a long time to respond with authorization for the SNF. She also wonders what the insurance company feels is beneficial about her staying in the hospital while they process the authorization only to end up denying coverage. The patient was very eager to go to rehab as her goal is to rehab and improve which was her past experience when undergoing the rigorous process at [facility]. The patient is interested in appealing the denial with [employer]. CM sent a response to [employer] asking for updates, CM received a phone response from Chi, hospital liaison [phone] asking for updated notes to be sent via [employer] ([employer]). CM to follow. D/Plan: continued pending insurance auth for rehab, SNF? CM to send updated notes Date Signed: 01/28/2019 04:15 PM Electronically Signed By:Henrietta Beckman [facility] Progress Note CM Note CM Note Notes: Pt is definitely wanting to d/c to SNF, [facility] is working on insurance auth. Updates sent to [facility] in [employer]. Voicemail left for [facility] leaving this CM contact information. CM Director Marilin has spoken with [facility] and they have submitted for insurance auth. Pt is anxious today, reports to this CM she does not feel safe going home where she will be alone for 12 hours and she has heard from some on her care team she is clear for home. Pt reports she has transportation to [facility] if they do not provide. OT rec home/HHC/SNF, PT rec SNF D/c plan of care: [facility] SNF when insurance approves. Date Signed: 01/29/2019 01:54 PM Electronically Signed By:ANA LAURA Hodges [facility] CM Progress Note CM Note CM Note Notes: Today [employer] approved SNF. ESTER Easley completed orders and obtained MD signature on them, order with MD signature faxed [phone] and rest sent in [employer]. Hard scripts to be sent with pt. [facility] transport scheduled for 01:30, to be billed to [facility] with Director Charlotte Gaston approval. Date Signed: 01/30/2019 01:52 PM Electronically Signed By:ANA LAURA Hodges Intervention Information
--- NOTE | 2019-01-31 20:19 | GDS ---
[f rep st] DISCHARGE SUMMARY PRIMARY DIAGNOSIS: Thoracic stenosis. OPERATIONS AND PROCEDURES: Dr. Castro performed a thoracic 7-8, thoracic 8-9 interbody cage placemen t with fusion tie-in from thoracic 6 to thoracic 9 on January 16, 2019. HOSPITAL COURSE: Patient presented to [facility] on January 16, 2019, for a thoracic T 7-8, T8-9 interbody cage placement with fusion from T6 to T9 with tie-in to existing hardware. Hari ventura underwent surgery with Dr. Adonis Castro for which there were no known complications. Please see his operative note for further details. After the surgery, the patient was in stable condition and t ransferred from the operating room to the PACU and then to the postsurgical floor. While on the floo r, the patient received physical and occupational therapy, DVT prophylaxis, and pain management. All drains and catheters were removed. Patient had a prolonged hospital stay due to pain management and excessive therapy needs. Patient was ultimately discharged to a fdc facility on January, in stable condition. Patient is scheduled to follow up in the office with Dr. Castro in 4 we eks for a postoperative visit. Patient has been instructed to contact our office with any questions or concerns in the meantime at . CONSULTS: Hospitalist. COMPLICATIONS: None. DISCHARGE MEDICATIONS: Please see discharge orders for medication list. DISCHARGE CONDITION: Stable, improved. DISCHARGE INSTRUCTIONS: Patient to avoid any bending or twisting at the waist. Patient to avoid lif ting greater than 10 pounds for 2 weeks and may slowly increase weight by 5 pounds per week. Patient will wear Jovany brace when out of bed, okay to remove brace to shower. Patient's incision is curre ntly well healed and is okay to shower or bathe as desired. Patient to avoid using any NSAIDs for th e next 6 months. Dental prophylaxis recommendations have been discussed, and patient is to contact o office with any questions or concerns, . /[id number]/MODL
--- NOTE | 2019-02-02 15:39 | PQFORM ---
PHYSICIAN QUERY FORM Needs Your Response This query form is being sent to you to assure this patient record is coded properly. Please respond to the question below: DAIRY NUTRITION SPECIALIST QUESTION: Dear Dr. Castro, Acute blood loss Anemia is noted within the Hospitalist progress notes dated 01/21-01/23. Labs reflect; on 01/17=HCT 33.1, HGB 11.0, RBC 3.56. On 01/20=HCT 31.0 , HGB 10.2, RBC 3.21. On 01/22=HCT 32.2, HGB 10.4, RBC 3.28. Patient was also noted to be in Tachycardia with fever on 01/20. Based on the clinical indicators and your professional judgment should the diagnosis of Acute blood loss anemia be included in the Discharge summary? Yes No Other more appropriate diagnosis (please specify) ____ Clinically unable to determine Thank you RILEY Greco HIM/Coding Dept. INSTRUCTIONS FOR RESPONSE: Answer question by clicking on the "Edit Document" button. Move cursor to area below the stars. When complete, hit "Save." Click on the "Sign" button, then click "Sign" again. Type in your PIN and hit "Enter." Yes. MTDD
== END 2019-01-30 14:51 | DRG 454 ==
LOC: F3N 11:19
PROVIDERS: ADMIT Neurological Surgery; ATTEND Neurological Surgery
PROC: 0RG70AJ Fusion of 2 to 7 Thoracic Vertebral Joints with Interbody Fusion Device, Posterior Approach, Anterior Column, Open Approach (ICD-10-PCS; principal; 2019-01-16 14:00)
PROC: 0RT90ZZ Resection of Thoracic Vertebral Disc, Open Approach (ICD-10-PCS; principal; 2019-01-16 14:00)
PROC: 0RG7071 Fusion of 2 to 7 Thoracic Vertebral Joints with Autologous Tissue Substitute, Posterior Approach, Posterior Column, Open Approach (ICD-10-PCS; principal; 2019-01-16 14:00)
PROC: 8E0WXBF Computer Assisted Procedure of Trunk Region, With Fluoroscopy (ICD-10-PCS; principal; 2019-01-16 14:00)
PROC: 4A1004G Monitoring of Central Nervous Electrical Activity, Intraoperative, Open Approach (ICD-10-PCS; principal; 2019-01-16 14:00)
DX: M48.04 Spinal stenosis, thoracic region (principal); D62 Acute posthemorrhagic anemia; F11.20 Opioid dependence, uncomplicated; M40.204 Unspecified kyphosis, thoracic region; M51.14 Intervertebral disc disorders with radiculopathy, thoracic region; I10 Essential (primary) hypertension; I48.0 Paroxysmal atrial fibrillation; G47.33 Obstructive sleep apnea (adult) (pediatric); F32.9 Major depressive disorder, single episode, unspecified; F41.9 Anxiety disorder, unspecified; K21.9 Gastro-esophageal reflux disease without esophagitis; G89.4 Chronic pain syndrome; K59.00 Constipation, unspecified; Z87.891 Personal history of nicotine dependence; Z98.1 Arthrodesis status
CPT/HCPCS: 97116-GP; 97161-GP; 97166-GO; 97530-GO; 97530-GP; 97535-GO; C1713; J0171; J0690; J1100; J1650; J2001; J2250; J2270; J2370; J2405; J2704; J2710; J3010; J3370